=== PATIENT | male | born 1950 | race American Indian/Alaskan Native ===

== ENCOUNTER 2016-12-15 10:44 | Inpatient (IN) | payer MEDICARE ==
[2016-12-15] MEDS ORDERED: D50W (25GM) Syringe IV ONE ×2 (10:48→23:33)
[2016-12-15 11:27] LABS: Basophils % (Auto) 0.4 % (0.0-1.8); Eosinophils % (Auto) 0.2 % (0.0-4.3); Mean Corpuscular HGB Conc 32 % (32-34); Mean Corpuscular Volume 76 fl (84-94); Platelet Count 151 K/mm3 (140-440); Red Blood Count 2.88 M/mm3 (3.65-5.03); Red Cell Distribution Width 17.7 % (13.2-15.2); White Blood Count 3.5 K/mm3 (4.5-11.0)
[2016-12-15 11:30] LABS: Mean Corpuscular Hemoglobin 24 pg (28-32)
[2016-12-15 11:41] LABS: Bacteria,Urine 1+ /HPF (Negative); Bilirubin,Urine NEG (Negative); Blood,Urine LG (Negative); Ketones,Urine NEG (Negative); Leukocyte Esterase,Urine NEG (Negative); Mucus,Urine FEW /HPF; Nitrite,Urine NEG (Negative); Protein,Urine <15 mg/dL mg/dL (Negative); Urobilinogen,Urine < 2.0 mg/dL (<2.0)
[2016-12-15 11:45] LABS: Anion Gap 16 mmol/L; Blood Urea Nitrogen 33 mg/dL (9-20); Calcium 7.7 mg/dL (8.4-10.2); Carbon Dioxide 27 mmol/L (22-30); Chloride 93.6 mmol/L (98-107); Glucose 386 mg/dL (75-100); Potassium 3.5 mmol/L (3.6-5.0); Sodium 133 mmol/L (137-145)
--- NOTE | 2016-12-15 11:54 | Emergency Department Report ---
- General Chief complaint: Altered Mental Status Stated complaint: UNRESPONSIVE Time Seen by Provider: 12/15/16 11:40 Source: patient Mode of arrival: Stretcher Limitations: No Limitations - History of Present Illness MD Complaint: generalized weakness -: Gradual Location: generalized Severity: moderate Severity scale (0 -10): 3 Quality: aching Consistency: constant Improves with: none Worsens with: none Associated Symptoms: denies: chest pain, confusion, dark stools, diaphoresis, dysuria, easy bruising, fever/chills, headaches, loss of appetite, nausea/ vomiting, rash, shortness of breath - Related Data Allergies Allergy/AdvReac Type Severity Reaction Status Date / Time No Known Allergies Allergy Verified 12/15/16 11:39 ED Review of Systems ROS: Stated complaint: UNRESPONSIVE Other details as noted in HPI Comment: All other systems reviewed and negative Constitutional: denies: chills, fever Eyes: denies: eye pain, eye discharge, vision change ENT: denies: ear pain, throat pain Respiratory: denies: cough, shortness of breath, wheezing Cardiovascular: denies: chest pain, palpitations Endocrine: no symptoms reported Gastrointestinal: denies: abdominal pain, nausea, diarrhea Genitourinary: denies: urgency, dysuria Musculoskeletal: denies: back pain, joint swelling, arthralgia Skin: denies: rash, lesions Neurological: denies: headache, weakness, paresthesias Psychiatric: denies: anxiety, depression Hematological/Lymphatic: denies: easy bleeding, easy bruising ED Past Medical Hx - Past Medical History Hx of Cancer: Yes (prostate) - Social History Smoking Status: Never Smoker Substance Use Type: None ED Physical Exam - General Limitations: No Limitations General appearance: alert, in no apparent distress - Head Head exam: Present: atraumatic, normocephalic - Eye Eye exam: Present: normal appearance - ENT ENT exam: Present: normal orophraynx, mucous membranes moist - Neck Neck exam: Present: normal inspection - Respiratory Respiratory exam: Present: normal lung sounds bilaterally. Absent: respiratory distress - Cardiovascular Cardiovascular Exam: Present: regular rate, normal rhythm. Absent: systolic murmur, diastolic murmur, rubs, gallop - GI/Abdominal GI/Abdominal exam: Present: soft, normal bowel sounds - Rectal Rectal exam: Present: deferred - Extremities Exam Extremities exam: Present: normal inspection - Back Exam Back exam: Present: normal inspection - Neurological Exam Neurological exam: Present: alert, oriented X3 - Psychiatric Psychiatric exam: Present: normal affect, normal mood - Skin Skin exam: Present: warm, dry, intact, normal color. Absent: rash ED Course Vital Signs 12/15/16 10:55 Temperature 97.5 F L Pulse Rate 91 H Respiratory 16 Rate Blood Pressure 108/70 [Right] O2 Sat by Pulse 100 Oximetry ED Medical Decision Making - Lab Data Result diagrams: 12/15/16 11:00 12/15/16 11:00 - EKG Data -: EKG Interpreted by Me EKG shows normal: sinus rhythm - EKG Data Interpretation: no acute changes - Radiology Data Radiology results: report reviewed, image reviewed - Medical Decision Making responding full senteces with me ayaka , has no complaints and wihses to go go home , waiting ofr head ct and probably dc. Critical care attestation.: If time is entered above; I have spent that time in minutes in the direct care of this critically ill patient, excluding procedure time. ED Disposition Clinical Impression: Weakness Disposition: DC-01 TO HOME OR SELFCARE Is pt being admited?: No Does the pt Need Aspirin: No Condition: Good Instructions: Weakness (ED) Time of Disposition: 12:51
[2016-12-15] MEDS ORDERED: ROCEPHIN/NS 1 GM/50 ML 1 GM/50 ML BAG IV ONE (14:13)
--- NOTE | 2016-12-15 14:14 | Emergency Department Report ---
ED General Adult HPI - General Chief complaint: Altered Mental Status Stated complaint: UNRESPONSIVE Time Seen by Provider: 12/15/16 11:40 Source: patient, RN notes reviewed Mode of arrival: Stretcher Limitations: Physical Limitation - History of Present Illness Initial comments: This is a 66-year-old male. He is previously unknown to me. He reports his primary care doctor is Dr. Ulloa. Patient reports a past medical history of prostate cancer. The patient was brought to the hospital for unresponsiveness and hypoglycemia. The patient reports "passing out." She complains of generalized weakness. He denies headache, neck pain, chest pain, abdominal pain, cough, mucus production, and he denies irritative and obstructive urinary symptoms. The patient is unable to describe exacerbating or relieving factors. -: Gradual Severity scale (0 -10): 3 Consistency: constant Improves with: none Worsens with: none Associated Symptoms: confusion, syncope, weakness - Related Data Allergies Allergy/AdvReac Type Severity Reaction Status Date / Time No Known Allergies Allergy Verified 12/15/16 11:39 ED Review of Systems ROS: Stated complaint: UNRESPONSIVE Other details as noted in HPI Comment: Unobtainable due to pts medical conditions Constitutional: malaise, weakness Eyes: denies: eye discharge Respiratory: denies: cough Cardiovascular: syncope Endocrine: no symptoms reported Gastrointestinal: denies: hematemesis, melena, hematochezia Genitourinary: as per HPI Musculoskeletal: denies: back pain, joint swelling, arthralgia Neurological: weakness, confusion. denies: headache, paresthesias Psychiatric: denies: anxiety, depression Hematological/Lymphatic: denies: easy bleeding, easy bruising ED Past Medical Hx - Past Medical History Hx of Cancer: Yes (prostate) - Social History Smoking Status: Never Smoker Substance Use Type: None ED Physical Exam - General Limitations: No Limitations General appearance: in no apparent distress - Head Head exam: Present: atraumatic, normocephalic - Eye Eye exam: Present: normal appearance - ENT ENT exam: Present: mucous membranes dry - Neck Neck exam: Present: normal inspection, full ROM. Absent: tenderness, meningismus - Respiratory Respiratory exam: Present: normal lung sounds bilaterally. Absent: respiratory distress, wheezes, rales, rhonchi, stridor, chest wall tenderness - Cardiovascular Cardiovascular Exam: Present: regular rate, normal rhythm. Absent: systolic murmur, diastolic murmur, rubs, gallop - GI/Abdominal GI/Abdominal exam: Present: soft, normal bowel sounds. Absent: distended, tenderness, guarding, rebound, rigid, pulsatile mass - Rectal Rectal exam: Present: normal inspection, normal rectal tone, heme (+) stool - Extremities Exam Extremities exam: Present: normal inspection, full ROM, normal capillary refill. Absent: pedal edema, joint swelling, calf tenderness - Back Exam Back exam: Present: normal inspection, full ROM. Absent: tenderness, CVA tenderness (R), CVA tenderness (L), muscle spasm, paraspinal tenderness, vertebral tenderness - Neurological Exam Neurological exam: Present: alert, oriented X3, other (Extraocular movements intact. Tongue midline. No facial droop. Facial sensation intact to light touch in the V1, V2, V3 distribution bilaterally. 5 and 5 strength in 4 extremities.. Sensation is intact to light touch in 4 extremities.). Absent: motor sensory deficit - Psychiatric Psychiatric exam: Present: normal affect, normal mood - Skin Skin exam: Present: warm, dry, intact, normal color. Absent: rash ED Course Vital Signs 12/15/16 12/15/16 10:55 14:00 Temperature 97.5 F L 93 F L Pulse Rate 91 H 89 Respiratory 16 13 Rate Blood Pressure 108/70 137/77 [Right] O2 Sat by Pulse 100 100 Oximetry ED Medical Decision Making - Lab Data Result diagrams: 12/15/16 11:00 12/15/16 11:00 Vital Signs 12/15/16 12/15/16 10:55 14:00 Temperature 97.5 F L 93 F L Pulse Rate 91 H 89 Respiratory 16 13 Rate Blood Pressure 108/70 137/77 [Right] O2 Sat by Pulse 100 100 Oximetry Lab Results 12/15/16 12/15/16 12/15/16 Range/Units 11:00 11:00 11:08 WBC 3.5 L (4.5-11.0) K/mm3 RBC 2.88 L (3.65-5.03) M/mm3 Hgb 7.0 L (11.8-15.2) gm/dl Hct 22.0 L (35.5-45.6) % MCV 76 L (84-94) fl MCH 24 L (28-32) pg MCHC 32 (32-34) % RDW 17.7 H (13.2-15.2) % Plt Count 151 (140-440) K/mm3 Lymph % (Auto) 32.7 (13.4-35.0) % [place] % (Auto) 6.9 (0.0-7.3) % Eos % (Auto) 0.2 (0.0-4.3) % Baso % (Auto) 0.4 (0.0-1.8) % Lymph # 1.1 L (1.2-5.4) K/mm3 [place] # 0.2 (0.0-0.8) K/mm3 Eos # 0.0 (0.0-0.4) K/mm3 Baso # 0.0 (0.0-0.1) K/mm3 Seg Neutrophils % 59.8 (40.0-70.0) % Seg Neutrophils # 2.1 (1.8-7.7) K/mm3 Sodium 133 L (137-145) mmol/L Potassium 3.5 L (3.6-5.0) mmol/L Chloride 93.6 L (98-107) mmol/L Carbon Dioxide 27 (22-30) mmol/L Anion Gap 16 mmol/L BUN 33 H (9-20) mg/dL Creatinine 0.5 L (0.8-1.5) mg/dL Estimated GFR > 60 ml/min BUN/Creatinine Ratio 66.00 % Glucose 386 H (75-100) mg/dL POC Glucose (70-105) Calcium 7.7 L (8.4-10.2) mg/dL Urine Color Yellow (Yellow) Urine Turbidity Clear (Clear) Urine pH 6.0 (5.0-7.0) Ur Specific [place] 1.010 (1.003-1.030) Urine Protein <15 mg/dl (Negative) mg/dL Urine Glucose (UA) >=500 (Negative) mg/dL Urine Ketones Neg (Negative) mg/dL Urine Blood Lg (Negative) Urine Nitrite Neg (Negative) Urine Bilirubin Neg (Negative) Urine Urobilinogen < 2.0 (<2.0) mg/dL Ur Leukocyte Esterase Neg (Negative) Urine WBC (Auto) 3.0 (0.0-6.0) /HPF Urine RBC (Auto) 50.0 (0.0-6.0) /HPF U Epithel Cells (Auto) < 1.0 (0-13.0) /HPF Urine Bacteria (Auto) 1+ (Negative) /HPF Urine Mucus Few /HPF 12/15/16 Range/Units 11:55 WBC (4.5-11.0) K/mm3 RBC (3.65-5.03) M/mm3 Hgb (11.8-15.2) gm/dl Hct (35.5-45.6) % MCV (84-94) fl MCH (28-32) pg MCHC (32-34) % RDW (13.2-15.2) % Plt Count (140-440) K/mm3 Lymph % (Auto) (13.4-35.0) % [place] % (Auto) (0.0-7.3) % Eos % (Auto) (0.0-4.3) % Baso % (Auto) (0.0-1.8) % Lymph # (1.2-5.4) K/mm3 [place] # (0.0-0.8) K/mm3 Eos # (0.0-0.4) K/mm3 Baso # (0.0-0.1) K/mm3 Seg Neutrophils % (40.0-70.0) % Seg Neutrophils # (1.8-7.7) K/mm3 Sodium (137-145) mmol/L Potassium (3.6-5.0) mmol/L Chloride (98-107) mmol/L Carbon Dioxide (22-30) mmol/L Anion Gap mmol/L BUN (9-20) mg/dL Creatinine (0.8-1.5) mg/dL Estimated GFR ml/min BUN/Creatinine Ratio % Glucose (75-100) mg/dL POC Glucose 108 H (70-105) Calcium (8.4-10.2) mg/dL Urine Color (Yellow) Urine Turbidity (Clear) Urine pH (5.0-7.0) Ur Specific [place] (1.003-1.030) Urine Protein (Negative) mg/dL Urine Glucose (UA) (Negative) mg/dL Urine Ketones (Negative) mg/dL Urine Blood (Negative) Urine Nitrite (Negative) Urine Bilirubin (Negative) Urine Urobilinogen (<2.0) mg/dL Ur Leukocyte Esterase (Negative) Urine WBC (Auto) (0.0-6.0) /HPF Urine RBC (Auto) (0.0-6.0) /HPF U Epithel Cells (Auto) (0-13.0) /HPF Urine Bacteria (Auto) (Negative) /HPF Urine Mucus /HPF - EKG Data -: EKG Interpreted by Me - EKG Data When compared to previous EKG there are: previous EKG unavailable 12/15/16 14:54 Sinus, 85 bpm, low voltage, T-wave inversions in the anteroseptal leads, abnormal EKG, QTC prolonged, not morphologically consistent with STEMI - Radiology Data Radiology results: report reviewed, image reviewed interpreted by me: X-ray the chest is hyperinflated, demonstrates no acute infiltrate, bony demineralization suggested, suggestive of patient's history of metastatic disease. Noncontrast CT scan of the brain is negative for acute findings, chronic diseases noted - Medical Decision Making Differential diagnosis: Lower GI bleed, bacteremia, pneumonia, urinary tract infection, thyroid insufficiency, environmental hypothermia Assessment and plan: 66-year-old male with a presenting complaint of generalized weakness, hypoglycemia, found to be hypothermic with a rectal temperature of 93 degrees, and anemia. Currently, he is alert to name, follows commands, though some month and location. He has brown stool that is guaiac positive. The patient will be started on packed red blood cell transfusion, he will be started on active passive rewarming, blood cultures and urine cultures will be drawn, he does not have neck pain or neck stiffness, therefore think meningitis is unlikely. Case is discussed with gastroenterology, Dr. Robles, and his group will follow as a consult. Case is presented to the Hospital physician, Dr. Hood, and he graciously accepts the patient to his service. Critical Care Time: Yes Critical care time in (mins) excluding proc time.: 35 Critical care attestation.: If time is entered above; I have spent that time in minutes in the direct care of this critically ill patient, excluding procedure time. Critical Care Time: Critical care time includes multiple bedside evaluations, interpretation of laboratory studies, radiology studies, time spent managing critically ill patient with hypothermia, hypoglycemia, anemia and lower GI bleed, requiring packed red blood cell transfusion, gastroenterology consultation, broad- spectrum antibiotics, consultation with hospital medicine. This does not include procedure time. ED Disposition Clinical Impression: Hypothermia, Lower GI bleed Disposition: OP ADMIT IP TO THIS HOSP Is pt being admited?: Yes Condition: Fair Instructions: Weakness (ED) Referrals: PRIMARY CARE, [Primary Care Provider] - 3-5 Days
[2016-12-15] MEDS ORDERED: NACL 0.9% 500 ML 500 ML IV ONE (14:42)
[2016-12-15] MEDS ORDERED: NACL 0.9% 1000 ML 1,000 ML IV ONE (14:42)
--- NOTE | 2016-12-15 14:43 | History and Physical Report ---
History of Present Illness Chief complaint: Doc "i iust feel weak, and i passed out" History of present illness: 66 YO Male with CaP, Severe Malnutrition presents to ED for evaluation. Pt states that he has been feeling weak and tired for the past 3 weeks with worsening symptoms over the past 2 days. Pt states that he passed out again today. Pt does not recall events prior to event, but merely recalls regaining consciousness on the floor. Pt denies trauma, fever, chills, CP, Palpitations, NVD, seizures, vertigo, loss of bowel/bladder continence, productive cough,leg swelling, calf pain, prolonged travel/immobility, hemoptysis, individual/family history of DVT/PE, or recent ill contacts. Pt seen and evaluated in ED and found to be hemoccult positive, and anemic with hgb of 7.0. GI consulted in ED. Past History Past Medical History: cancer, other (malnurition) Past Surgical History: No surgical history, Other (reviewed) Social history: single, Lives alone. denies: smoking, alcohol abuse, prescription drug abuse, IV drug use Family history: hypertension Medications and Allergies Allergies Allergy/AdvReac Type Severity Reaction Status Date / Time No Known Allergies Allergy Verified 12/15/16 11:39 Home Medications Medication Instructions Recorded Confirmed Last Taken Type No Known Home Medications [No 12/15/16 12/15/16 Unknown History Reported Home Medications] Active Meds: Active Medications Dextrose (D10w) 1,000 mls @ 75 mls/hr IV DIRECT MCKINLEY Review of Systems All systems: negative Constitutional: weight loss, no weight gain, no fever, no chills Ears, nose, mouth and throat: no ear pain, no ear discharge Cardiovascular: no chest pain, no orthopnea Respiratory: no cough Gastrointestinal: no abdominal pain Genitourinary Male: no hematuria, no flank pain Rectal: no pain Musculoskeletal: other (back pain) Integumentary: no rash, no pruritis, no redness Neurological: no head injury, no paralysis, no weakness Psychiatric: no anxiety Endocrine: no heat intolerance, no polyphagia, no excessive thirst Hematologic/Lymphatic: no easy bruising, no easy bleeding Allergic/Immunologic: no urticaria, no allergic rhinitis Exam - Constitutional Vitals: Temp Pulse Resp BP Pulse Ox 93 F L 89 13 137/77 100 12/15/16 14:00 12/15/16 14:00 12/15/16 14:00 12/15/16 14:00 12/15/16 14:00 General appearance: Present: mild distress, cachectic - EENT Eyes: Present: PERRL ENT: hearing intact, clear oral mucosa - Neck Neck: Present: supple, normal ROM - Respiratory Respiratory effort: normal Respiratory: bilateral: diminished - Cardiovascular Heart Sounds: Present: S1 & S2. Absent: rub, click - Extremities Extremities: pulses symmetrical, No edema Peripheral Pulses: within normal limits - Abdominal General gastrointestinal: Present: soft, non-tender, non-distended, normal bowel sounds Male genitourinary: Present: normal - Integumentary Integumentary: Present: clear, dry, clammy, decreased turgor - Musculoskeletal Musculoskeletal: generalized weakness - Psychiatric Psychiatric: appropriate mood/affect, intact judgment & insight - Neurologic Neurologic: CNII-XII intact, moves all extremities Results - Labs CBC & Chem 7: 12/15/16 11:00 12/15/16 11:00 Labs: Abnormal lab results 12/15/16 12/15/16 12/15/16 Range/Units 11:00 11:00 11:55 WBC 3.5 L (4.5-11.0) K/mm3 RBC 2.88 L (3.65-5.03) M/mm3 Hgb 7.0 L (11.8-15.2) gm/dl Hct 22.0 L (35.5-45.6) % MCV 76 L (84-94) fl MCH 24 L (28-32) pg RDW 17.7 H (13.2-15.2) % Lymph # 1.1 L (1.2-5.4) K/mm3 Sodium 133 L (137-145) mmol/L Potassium 3.5 L (3.6-5.0) mmol/L Chloride 93.6 L (98-107) mmol/L BUN 33 H (9-20) mg/dL Creatinine 0.5 L (0.8-1.5) mg/dL Glucose 386 H (75-100) mg/dL POC Glucose 108 H (70-105) Calcium 7.7 L (8.4-10.2) mg/dL Assessment and Plan - Patient Problems (1) Lower GI bleed Current Visit: Yes Status: Acute Plan to address problem: GI consulted in ED, PPI therapy, serial BMP, PRBC transfusion (2) Unconscious state Current Visit: Yes Status: Acute Plan to address problem: CT head, supportive care, IVF replacement, monitor uop q shift. (3) Prostate cancer Current Visit: Yes Status: Acute Plan to address problem: supportive care, pain control, outpatient f/U with oncology (4) Severe malnutrition Current Visit: Yes Status: Acute Plan to address problem: Encourage oral intake, increased protein intake (5) Blood loss anemia Current Visit: Yes Status: Acute Plan to address problem: PRBC transfusion, supportive care, repeat cbc (6) Hypothermia Current Visit: Yes Status: Acute Qualifiers: Encounter type: E Plan to address problem: warming blanket, supportive care. (7) DVT prophylaxis Current Visit: Yes Status: Acute
--- NOTE | 2016-12-15 14:50 | Cat Scan Report ---
CT HEAD WITHOUT CONTRAST: HISTORY: Altered mental status. TECHNIQUE: Sequential CT images without contrast. FINDINGS: Images obtained show bilateral prominence of the sulci and ventricles. There are no focal masses or evidence of mass effect. The winston white matter differentiation appears within normal limits. Regions of periventricular decreased attenuation are consistent with microangiopathic ischemic disease. Arachnoid cyst anterior to the right temporal lobe measures 3.2 x 2.0 cm. There is a chronic cortical infarct in the right parietal lobe measuring up to 3.5 x 1.5 cm. The posterior fossa structures including the fourth ventricle, cerebellum, and brainstem appear normal. There is complete opacification and expansion of the left maxillary sinus. Complete opacification of the sphenoid sinuses. Partial opacification of the ethmoid sinuses. IMPRESSION: Volume loss and chronic white matter changes. 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 Right temporal arachnoid cyst, likely an incidental finding. Advanced chronic sinus disease. Left maxillary sinus mucocele should be considered. No acute intracranial process is appreciated.
--- NOTE | 2016-12-15 15:07 | XRay Report ---
CHEST ONE VIEW INDICATION: Hypothermia, hypoglycemia, questionable pneumonia. COMPARISON: None similar. FINDINGS: Portable, single, frontal chest radiograph demonstrates normal cardiomediastinal silhouette. Clear lungs. Diffuse skeletal sclerotic metastases. Extrinsic EKG leads. CONCLUSION: No acute disease in the chest with diffuse bony metastatic disease noted. Thank you for the opportunity to participate in this patient's care.
[2016-12-15 15:36] LABS: INR 2.37 (0.87-1.13)
[2016-12-15 15:37] LABS: Partial Thromboplastin Time 34.9 Sec. (24.2-36.6)
[2016-12-15 15:39] LABS: Albumin 3.6 g/dL (3.9-5); Albumin/Globulin Ratio 1.2 %; Bilirubin,Direct 0.3 mg/dL (0-0.2); Bilirubin,Indirect 0.4 mg/dL; Bilirubin,Total 0.7 mg/dL (0.1-1.2); Total Protein 6.7 g/dL (6.3-8.2)
[2016-12-15] MEDS ORDERED: DULCOLAX PR PRN (15:58)
[2016-12-15] MEDS ORDERED: MILK OF MAGNESIA PO PRN (15:58)
[2016-12-15] MEDS ORDERED: TYLENOL PO PRN (15:58)
[2016-12-15] MEDS ORDERED: PROVENTIL IH PRN (15:58)
[2016-12-15] MEDS: D10W 1,000 ML IV SCH (16:11)
[2016-12-15] MEDS ORDERED: PERCOCET 5/325 PO PRN (16:30)
[2016-12-15] MEDS ORDERED: NACL 0.9% 500 ML 500 ML ONE (16:55)
[2016-12-15] MEDS: DILAUDID PO PRN (18:05)
[2016-12-15] MEDS: PROTONIX IV SCH (18:46)
[2016-12-16] MEDS: DILAUDID PO PRN ×4 (00:51→18:31)
[2016-12-16] MEDS: PROTONIX IV SCH ×2 (05:51→17:51)
[2016-12-16] MEDS: D10W 1,000 ML IV SCH (07:15)
--- NOTE | 2016-12-16 10:30 | Admit Criteria Form ---
Admission Criteria Documentation: GENERAL ADMISSION CRITERIA (Place 'X' for any and all applicable criteria): Admission is indicated for ANY ONE of the following: [ ]I. Hemodynamic instability as indicated by ANY ONE of the following(1)(2) (3)(4)(5): [ ]a) Vital sign abnormality not readily corrected by appropriate treatment within 12 to 24 hours indicated by ANY ONE of the following: [ ]i) Hypotension [ ]ii) Symptomatic Tachycardia unresponsive to treatment (eg , analgesia, fluids, sedation as indicated) [ ]iii) Orthostatic vital sign changes unresponsive to treatment (eg, fluids) [ ]b) Vital sign abnormality that is severe indicated by ANY ONE of the following: [ ]i) Inadequate perfusion indicated by ANY ONE of the following: [ ]1) Lactic acidosis (greater than 2 mmol/L) [ ]2) New abnormal capillary refill (greater than 3 seconds) [ ]3) Other metabolic acidosis (arterial pH less than 7.35) not otherwise explained [ ]4) Reduced urine output [ ]5) Altered mental status [ ]6) Myocardial Ischemia [ ]v) Mean arterial pressure[A] less than 60 mm Hg [ ]vi) Mean arterial pressure[A] less than 70 mm Hg after 30 minutes of appropriate treatment (eg, fluid resuscitation) [ ]vii) IV inotropic or vasopressor medication required to maintain adequate blood pressure or perfusion [ ]viii) Sustained heart rate greater than 120 beats per minute in adult or child 6 years or older[B]] [ ]II. Hypertension requiring inpatient treatment as indicated by ANY ONE of the following(6)(7)(8): [ ]a) SBP greater than 220 mm Hg or DBP greater than 120 mm Hg despite treatment [ ]b) SBP greater than 140 mm Hg or DBP greater than 100 mm Hg with evidence of acute end organ damage as indicated by ANY ONE of the following: [ ]i) Encephalopathy [ ]ii) Acute renal failure as indicated by new onset of ANY ONE of the following(9)(10)(11)(12)(13): [ ]1) A 3-fold rise in serum creatinine from baseline [ ]2) Serum creatinine greater than 4 mg/dL ( 354 micromoles/L) with acute rise greater than 0.5 mg/dL (44.2 micromoles/L) [ ]3) Reduction of more than 75% in estimated glomerular filtration rate from baseline [ ]4) Estimated glomerular filtration rate less than 35 mL/min/1.73m2 (0.59 mL/sec/1.73m2) in child up to 18 years of age [ ]5) Cessation of urine output indicated by ALL of the following: [ ]A. Adequate volume status [ ]B. Inadequate urine output as indicated by ANY ONE of the following: [ ]a. Urine output less than 0.3 mL/kg/hr for 24 hours [ ]b. Anuria (urine output less than 0.1 mL/kg/hr) for 12 hours [ ]iii) Aortic dissection [ ]iv) Myocardial ischemia [ ]v) Left ventricular heart failure [ ]vi) Retinal hemorrhage [ ]vii) Other significant finding [ ]c) Hypertension in child requiring inpatient treatment as indicated by ALL of the following(14)(15)(16): [ ]i) Outpatient treatment not effective, not available, or not appropriate [ ]ii) SBP or DBP greater than 95th percentile for age [ ]iii) Evidence of acute end organ damage as indicated by ANY ONE of the following: [ ]1) Altered mental status [ ]2) Acute renal failure as indicated by new onset of ANY ONE of the following(9)(10)(11)(12)(13): [ ]A. A 3-fold rise in serum creatinine from baseline [ ]B. Serum creatinine greater than 4 mg/dL (354 micromoles/L) with acute rise greater than 0.5 mg/dL (44.2 micromoles/L) [ ]C. Reduction of more than 75% in estimated glomerular filtration rate from baseline [ ]D. Estimated glomerular filtration rate less than 35 mL/min/1.73m2 (0.59 mL/sec/1.73m2)in child up to 18 years of age [ ]E. Cessation of urine output indicated by ALL of the following: [ ]a. Adequate volume status [ ]b. Inadequate urine output as indicated by ANY ONE of the following: [ ]1) Urine output less than 0.3 mL/kg/hr for 24 hours [ ]2) Anuria (urine output less than 0.1 mL/kg/hr) for 12 hours [ ]3) Severe headache [ ]4) Visual disturbance [ ]5) Retinal hemorrhage [ ]6) Other significant finding [ ]III. Acute cardiac or peripheral ischemia as indicated by ANY ONE of the following: [ ]a) Acute coronary syndrome(17)(18) [ ]b) Acute peripheral ischemia (eg, pulseless, cool, mottled, or cyanotic extremity)(19) [ ]IV. Cardiac arrhythmias or findings of immediate concern indicated by ANY ONE of the following(20)(21): [ ]a) Heart rhythms that are inherently dangerous or unstable indicated by ANY ONE of the following(22)(23)(24): [ ]i) Resuscitated ventricular fibrillation or cardiac arrest [ ]ii) Ventricular escape rhythm [ ]iii) Sustained ventricular tachycardia (30 seconds or more of ventricular rhythm at greater than 100 beats per minute) [ ]iv) Nonsustained ventricular tachycardia and ANY ONE of the following: [ ]1) Suspected cardiac ischemia as cause or consequence of ventricular tachycardia [ ]2) In setting of acute myocarditis [ ]b) Unstable cardiac conduction defects indicated by ANY ONE of the following(24)(25)(26): [ ]i) Type II second-degree atrioventricular block [ ]ii) Third-degree atrioventricular block [ ]iii) New-onset left bundle branch block with suspected myocardial ischemia [ ]c) Any heart rhythm and ANY ONE of the following(22)(23)(27)(28)( 29): [ ] i) Continuous long-term ECG monitoring needed (eg, initiation of drug requiring monitoring for more than 24 hours) [ ] ii) Patient has automatic implanted cardioverter defibrillator that is repeatedly firing, malfunctioning, or in need of immediate adjustment of settings beyond the scope of ambulatory or observation care. [ ]d) Heart rhythms of concern due to ANY ONE of the following: [ ]i) Hypotension [ ]ii) Respiratory distress [ ]iii) Association with other significant symptoms (eg, bradycardia with syncope or ongoing dizziness, supraventricular tachycardia with chest pain) (27)(28) (30) [ ] V. Severe heart failure as indicated by ANY ONE of the following ( 31)(32): [ ]a) Respiratory distress [ ]b) Hypotension [ ]c) Anasarca (refractory to outpatient therapy) [ ]d) Cardiac arrhythmias of immediate concern [ ]e) Myocardial ischemia [ ]. Respiratory abnormalities, including ANY ONE of the following(33)(34) (35)(36): [ ]a) Respiratory rate greater than 30 breaths per minute unresponsive to treatment [A] [ ]b) New saturation of arterial oxygen less than 90% [ ]c) New partial pressure of carbon dioxide greater than 44 mm Hg ( 5.9 kPa) [ ]d) Supplemental oxygen or respiratory treatments needed that are new or not performable at other levels of care [ ]e) New-onset cyanosis [ ]f) Inability to protect airway [ ]g) Chronic lung disease with severe deterioration (not responsive to emergency and observation care treatment as appropriate) as indicated by ANY ONE of the following(34)(36 ): [ ]i) SaO2 5% below baseline in patient with chronic hypoxemia [ ]ii) New requirement for supplemental oxygen to keep SaO2 at baseline or acceptable level [ ]iii) Required supplemental oxygen performable only in acute inpatient setting [ ]iv) Severe airflow or ventilation abnormalities [ ]v) Previously mobile patient unable to walk between rooms [ ]vi Inability to eat or sleep due to dyspnea [ ]vii) Rapid rate of exacerbation onset [ ]viii) Altered mental status ]VII. Severe airflow or ventilation abnormalities (not responsive to emergency and observation care treatment as appropriate) as indicated by ANY ONE of the following(33)(34)(35)(37): [ ]a) PCO2 greater than 42 mm Hg (5.6 kPa) and pH less than 7.35 (new ) [ ]b) Documented PCO2 increased more than 5 mm Hg (0.7 kPa) from disease baseline [ ]c) Airflow measurements [B] less than 60% of previous best or predicted (eg, peak expiratory flow rate less than 300 L/minute) despite intensive emergent treatment [C] [ ]d) Required respiratory treatments that are performable only in acute inpatient setting [ ]VIII. Impending or actual respiratory arrest ( Also use Respiratory Failure GRG for severe respiratory disease and long-term mechanical ventilation patients) [ ]IX. Neurologic abnormalities, including ANY ONE of the following: [ ]a) New findings that suggest ANY ONE of the following: [ ]i) [employer] infection(38) [ ]ii) Cerebral bleeding, ischemia, or vasospasm(39)(40) [ ]iii) Increased intracranial pressure, hydrocephalus, or cerebral edema(41)(42)(43) [ ]iv) Spinal cord injury(44) [ ]b) Uncontrolled seizures(45) [ ]c) New-onset coma (eg, [place] coma scale score less than 9) or unexplained abnormal mental status (eg, [place] coma scale score less than 14) [D](41)(46)(47) [ ]X. New-onset severe neurologic findings requiring inpatient care; examples include(42)(48)(49): [ ]a) Papilledema [ ]b) Cerebral edema [ ]c) Mass effect on CT scan [ ]XI. Suspected acute intra-abdominal process with peritoneal signs, abdominal mass, or similar findings (50)(51)(52) [ ]XII. Severe physiologic disorder remaining after emergency or observation level care (as appropriate) as indicated by ANY ONE of the following (53): [ ]a) Significant dehydration [ ]b) Diabetic ketoacidosis [ ]c) Hyperglycemic hyperosmolar state (eg, osmolality greater than 320 mOsm/kg (mmol/kg) [ ]d) Hypoglycemia [ ]e) Other (new) acid-base disorder with pH less than 7.35 or greater than 7.5(54) [ ]f) Thyroid storm (55) [ ]g) Myxedema coma (55) [ ]XIII. Abdominal abnormalities with ANY ONE of the following(56)(57): [ ]a) Absent bowel sounds with complete ileus [ ]b) Signs of intestinal obstruction or peritonitis [E] [ ]c) Nausea and vomiting that cannot be controlled with outpatient or observation care [ ]XIV. Acute renal failure as indicated by new onset of ANY ONE of the following(9)(10)(11)(12)(13): [ ]a) A 3-fold rise in serum creatinine from baseline [ ]b) Serum creatinine greater than 4 mg/dL (354 micromoles/L) with acute rise greater than 0.5 mg/dL (44.2 micromoles/L) [ ]c) Reduction of more than 75% in estimated glomerular filtration rate from baseline [ ]d) Estimated glomerular filtration rate less than 35 mL/min/ 1.73m2 (0.59 mL/sec/1.73m2) in child up to 18 years of age [ ]e) Cessation of urine output indicated by ALL of the following: [ ]i) Adequate volume status [ ]ii) Inadequate urine output as indicated by ANY ONE of the following: [ ]1) Urine output less than 0.3 mL/kg/hr for 24 hours [ ]2) Anuria (urine output less than 0.1 mL/kg/hr) for 12 hours [ ]XV. Significant uremic complications as indicated by ANY ONE of the following(58)(59)(60): [ ]a) Outpatient therapy is ineffective or not feasible for ANY ONE of the following: [ ]i) Severe heart failure [ ]ii) Severehypertension [ ]iii) Pleural effusion [ ]iv) Pericarditis or pericardial effusion [ ]b) Cardiac arrhythmias of immediate concern [ ]c) Intractable nausea or vomiting [ ]d) Recurrent seizures [ ]e) Encephalopathy [ ]f) Bleeding abnormalities (eg, platelet dysfunction) with active (eg, gastrointestinal) bleeding [ ]g) Dialysis indicated before long-term access or ambulatory arrangements can be made [ ]h) Significant metabolic or electrolyte abnormalities (eg, severe acidosis or hyperkalemia) [ ]XVI. High fever or other high-risk infection situation as indicated by ANY ONE of the following(61)(62)(63)(64): [ ]a) Outpatient and observation care antimicrobial treatment unavailable, not effective, or not appropriate [ ]b) Documented bacteremia [ ]c) Temperature greater than 40.5 degrees C (104.9 degrees F) ( oral) [ ]d) Temperature greater than 39.5 degrees C (103.1 degrees F) ( oral) or less than 36 degrees C (96.8 degrees F) (rectal) that does not respond to e treatment and observation care [X ] XVII. Temperature less than 95 degrees F (35 degrees C)(rectal)(65) [ ] XVIII. Severe nutritional abnormalities as indicated by ALL of the following (66)(67): [ ]a) Inability to tolerate or establish sufficient oral or other enteral nutrition in outpatient setting [ ]b) Parenteral nutrition regimen need that must be implemented on inpatient basis [ ] XIX. Severe electrolyte abnormalities indicated by ALL of the following(68) (69)(70): [ ]a) Electrolytes and associated findings are not as expected for patient baseline or acceptable treatment effects. [ ]b) Severe abnormalities indicated by ANY ONE of the following: [ ]i) Sodium less than 130 mEq/L (mmol/L) (new) [ ]ii)Sodium less than 135 mEq/L (mmol/L) with ANY ONE of the following: [ ]1) Uncorrectable (to near normal or chronic baseline) after trial of outpatient and emergency treatment [ ]2) Altered mental status [ ]3) Seizures [ ]4) Severe medical etiology requiring inpatient management (eg, heart failure, hypovolemia) [ ]iii) Sodium greater than 155 mEq/L (mmol/L) [ ]iv) Sodium greater than 150 mEq/L (mmol/L) with ANY ONE of the following: [ ]1) Uncorrectable (to near normal or chronic baseline) with outpatient and emergency treatment [ ]2) Altered mental status [ ]3) Seizures [ ]4) Severe medical etiology (eg, hypovolemia, diabetes insipidus) [ ]v) Potassium less than 2.5 mEq/L (mmol/L) despite outpatient and emergency treatment [ ]vi) Potassium less than 3 mEq/L (mmol/L) with ANY ONE of the following: [ ]1) Weakness [ ]2) Cardiac abnormality (eg, arrhythmia, conduction disturbance) [ ]3) Cardiac ischemia [ ]4) Ileus [ ]5) Ongoing medical cause requiring inpatient management (eg, acute renal wasting or SIADH) [ ]6) Other severe symptoms [ ]vii) Potassium greater than 6.5 mEq/L (mmol/L) [ ]viii) Potassium greater than 5 mEq/L (mmol/L) with ANY ONE of the following: [ ]1) Uncorrectable (to near normal or chronic baseline) with outpatient and emergency treatment [ ]2) Severe ECG findings [F] [ ]3) Acute worsening of renal failure (creatinine greater than 2.5 mg/dL (221 micromoles/L) or significant elevation for age and size) [ ]4) Severe weakness [ ]5) Severe medical etiology (eg, hemolysis, infection, drug overdose) [ ]ix) Calcium less than 7 mg/dL (1.75 mmol/L) despite outpatient and emergency treatment (72) [ ]x) Calcium less than 8 mg/dL (2 mmol/L) with significant symptoms or findings; examples include(72): [ ]1) Altered mental status [ ]2) Muscle spasms [ ]3) Seizures [ ]4) Breathing difficulty [ ]5) Cardiac abnormality (eg, arrhythmia or conduction disturbance) [ ]xi) Calcium greater than 14 mg/dL (3.5 mmol/L)(72) [ ]xii) Calcium greater than 12 mg/dL (3 mmol/L) with ANY ONE of the following(72): [ ]1) Uncorrectable (to near normal or chronic baseline) with outpatient and emergency treatment [ ]2) Significant dehydration or hypovolemia as indicated by ALL of the following(70)(73)(74): [ ]A. Not resolved with initial treatments [ ]B. Clinically significant dehydration as indicated by ANY ONE of the following: [ ]a. Vomiting refractory to outpatient treatment (ie, precluding oral rehydration) [ ]b. Inability to drink [ ]c. Hypernatremia or other electrolyte abnormality unable to be corrected with outpatient and emergency treatment [ ]d. Failure to remain hydrated with outpatient therapy [ ]e. Reduced urine output [ ]f. Hypotension [ ]g. Serious cause for dehydration requiring acute hospitalization (eg, bowel obstruction, increased intracranial pressure, infectious cause) [ ]h. Child with ANY ONE of the following(75): [ ]1) Severe abdominal tenderness [ ]2) Adequate care not available at home [ ]3) Severe dehydration ( greater than 9% loss of body weight) [ ]4) Significant symptoms or findings; examples include: [ ]A. Altered mental status [ ]B. Cardiac abnormality (eg, arrhythmia, conduction disturbance) [ ]C. Malignant etiology requiring inpatient treatment [ ]xiii) Phosphorus less than 1 mg/dL (0.32 mmol/L) [ ]xiv) Phosphorus less than 1.5 mg/dL (0.48 mmol/L) with ANY ONE of the following: [ ]1) Patient unresponsive to outpatient and emergency treatment [ ]2) Significant symptoms or findings; examples include: [ ]A. Weakness [ ]B. Altered mental status [ ]C. Breathing difficulty [ ]D. Seizures [ ]E. Rhabdomyolysis [ ]xv) Phosphorus greater than 10 mg/dL (3.2 mmol/L) [ ]xvi) Phosphorus greater than 4.5 mg/dL (1.45 mmol/L) (new) with ANY ONE of the following: [ ]1) Severe medical etiology (eg, crush injury, acute renal failure) [ ]2) Associated hypocalcemia with significant findings; examples include: [ ]A. Neurologic symptoms [ ]B. Altered mental status [ ]C. Muscle spasms [ ]D. Seizures [ ]E. Breathing difficulty [ ]F. Cardiac abnormality (eg, arrhythmia, conduction disturbance) [ ]xvii) Magnesium less than 1 mg/dL (0.41 mmol/L) [ ]xviii) Magnesium less than 1.5 mg/dL (0.62 mmol/L) with ANY ONE of the following: [ ]1) Patient unresponsive to outpatient and emergency treatment [ ]2) Associated hypocalcemia with significant findings; examples include: [ ]A. Altered mental status [ ]B. Muscle spasms [ ]C. Seizures [ ]D. Breathing difficulty [ ]E. Cardiac abnormality (eg, arrhythmia , conduction disturbance) [ ]3) Associated hypokalemia (potassium less than 3 mEq/L (mmol/L)) with risk of arrhythmia [ ]xix) Magnesium greater than 4 mEq/L (2 mmol/L) [ ]xx) Magnesium greater than 2.5 mEq/L (1.25 mmol/L) with significant symptoms or findings; examples include: [ ]1) Weakness [ ]2) Altered mental status [ ]3) Cardiac abnormality (eg, arrhythmia, conduction disturbance) [ ]4) Breathing difficulty [ ]5) Severe medical etiology (eg, renal failure, hypovolemia) [ ]xxi) Uric acid greater than 20 mg/dL (1190 micromoles/L)(76) [ ]xxii) Uric acid greater than 8 mg/dL (476 micromoles/L) with significant symptoms or findings of tumor lysis syndrome; examples include(76): [ ]1) Creatinine greater than 1.5 times upper limit of normal [ ]2) Cardiac abnormality (eg, arrhythmia, conduction disturbance) [ ]3) Seizure [ ]XX. Acute blood loss causing significant abnormality as indicated by ANY ONE of the following(77)(78): [ ]a) Hemoglobin less than 10 g/dL (100 g/L) (not baseline) [ ]b) Hematocrit less than 30% (0.30) (not baseline) [ ]c) Repeat hematocrit decreased more than 2% (0.02) [ ]d) Uncontrolled bleeding [ ]XXI. Severe anemia indicated by ANY ONE of the following(78)(79): [ ]a) Altered mental status [ ]b) Chest pain [ ]c) Exertional dyspnea [ ]d) Syncope [ ]e) Other findings suggesting inadequate perfusion [ ]f) Treatment with transfusion or volume replacement is ineffective at resolving ANY ONE of the following [G]: [ ]i) Tachycardia for age [ ]ii) Orthostatic vital sign changes as indicated by ANY ONE of the following(80): [ ]1) Fall in SBP of 20 mm Hg or more 1 to 3 minutes after patient sits or stands from recumbent position [ ]2) Fall in DBP of 10 mm Hg or more 1 to 3 minutes after patient sits or stands from recumbent position [ ]XXII. High-risk low platelet count as indicated by ANY ONE of the following( 81)(82): [ ]a) Severe or life-threatening bleeding (eg, intracranial, major gastrointestinal, or extensive mucosal bleeding), with any reduced platelet count [ ]b) Platelet count less than 20,000/mm3 (20 x109/L) with any active bleeding [ ]c) Platelet count less than 10,000/mm3 (10 x109/L) with minor purpura or petechiae [ ]d) Platelet count less than 5000/mm3 (5 x109/L) [ ]e) Low platelet count with hemolytic anemia [ ]XXIII. Disseminated intravascular coagulation(77)(83) [ ]XXIV. Severe adverse drug or systemic toxin reaction requiring inpatient treatment; examples include(84)(85): [ ]a) Serotonin syndrome(86) [ ]b) Neuroleptic malignant syndrome(86) [ ]c) Cholinergic syndrome with severe symptoms (eg, bronchorrhea, weakness, mental status changes, seizures) [ ]d) Sympathetic syndrome with severe symptoms (eg, seizures, mental status changes, cardiac dysrhythmias) [ ]e) Anticholinergic syndrome [ ]XXV. Severe pain requiring acute inpatient management as indicated by ALL of the following (87)(88)(89): [ ]a) Continuous or frequent (eg, every 2 to 4 hours) parenteral analgesics required [H] [ ]b) Rapid improvement expected from treatment or acute intervention (eg, surgery, anesthesia procedure) [ ]XXVI.Severe behavioral health issues judged unmanageable at a lower level of care (eg, residential) in a patient who is ANY ONE of the following(91) [ ]a) Acutely suicidal [ ]b) A danger to self (eg, self-mutilating or suicidal behavior) [ ]c) A danger to others (eg, assaultive or homicidal behavior) [ ]d) Incapacitated because of grave disability (eg, inability to provide for self at lower level of care) (92) [ ]XXVII. Inpatient monitoring needed; examples include(1)(3)(87)(93)(94)(95)(96 ): [ ]a) Vital signs, neurologic signs, or vascular checks more frequently than every 4 hours [ ]b) Cardiac or respiratory monitoring beyond the scope (eg, over 24 hours) of observation care [ ]c) Pulmonary artery catheter monitoring [ ]d) Suspected compartment syndrome(97) (98) [ ]e) Cerebral bleeding, hydrocephalus, or vasospasm monitoring [ ]f) Increased intracranial pressure or cerebral edema monitoring [ ]g) monitoring [ ]XXVIII. Treatment requiring inpatient care; examples include: [ ]a) IV fluid to replace significant ongoing losses (greater than 3 L/m2 per day)(53) [ ]b) High concentration oxygen (greater than 40%)(33)(99)(100) [ ]c) Frequent respiratory therapy (more frequently than every 4 hours) to maintain airflow rates greater than 60% of baseline(33)(99)(100) [ ]d) Epidural analgesia(87) [ ]e) IV anticoagulation, vasoactive, or antiarrhythmic medication(19 )(23) [ ]f) Acute thrombolytics (generally require 24 hours of observation )(101)(102) [ ]XXIX. Emergency procedures needed; examples include: [ ]a) Emergency inpatient surgery [ ]b) Temporary pacemaker placement(103) [ ]c) Chest tube placement with active evacuation (eg, suction, drainage)(104) [ ]d) Emergent cardioversion(105) [ ]e) Emergent cardiac or vascular procedures (eg, cardiac catheterization, angioplasty) (17)(18) [ ]f) Emergent dialysis access placement and institution(10)(106) [ ]g) Emergent pericardiocentesis(107) [ ]h) Emergent plasmapheresis or leukapheresis(83) [ ]i) Emergent tracheostomy The original [employer] content created by [employer] has been revised. The portions of the content which have been revised are identified through the use of italic text or in bold, and [employer] has neither reviewed nor approved the modified material. All other unmodified content is copyright [employer] Please see references footnoted in the original [employer] edition 2016 Admission Criteria Met: Yes
[2016-12-16] MEDS ORDERED: NACL 0.9% 500 ML 500 ML IV ONE ×2 (11:21→15:00)
--- NOTE | 2016-12-16 11:25 | Progress Note ---
Assessment and Plan Assessment and plan: 66 YO Male with Widely metastatic prostate cancer, Severe Malnutrition , he states that he only follows up with his PCP who is Dr. Ulloa on [facility]. He does not see a urologist, he does not see an oncologist. States that he is only taking pain medications at home. He is complaining of dysphagia , he has trouble swallowing and feels like food gets stuck in the middle of his throat. Because of this he had poor intake of food and fluids. He has been weak he is been losing weight. He reports multiple episodes of passing out. Has very little recollection of it. Denies use of blood thinners, denies bloody stools or melena. He denies etoh use, He states that he is not a hospice patient Anemia Likely multifactorial, most likely due to widely metastatic malignancy, malnutrition. Patient has been transfused, hemoglobin improved Dysphagia Suspect esophageal stricture, GI has been consulted for possible EGD, they requested CT abdomen and pelvis, we'll review this speech path consult Widely metastatic prostate cancer We'll discuss with his PCP awaiting a call back, to find out the extent of disease, what treatment he has received , and the goal of care with him. As the patient seems to have trouble relaying this. obtain urology and oncology consult in am Hypokalemia Replete IV Autonomic Imbalance -likely due to anemia and dehydration -has received blood and now improved -continue IVF Diabetes with hyperglycemia Low-dose sliding scale as patient is nothing by mouth Lactic acidosis Doesn't appear to be due to sepsis, infection workup is negative which includes chest x-ray and UA. Hepatitis/elevated liver enzymes likely due to metastatic cancer fup GI recs Coagulopathy INR is 2.3, patient is on anticoagulation. Suspect vitamin K deficiency FFP and vitamin K ordered, repeat coags Severe malnutrition Dietitian consults Hypothermia resolved with warming blanket DVT prophylaxis scds History Interval history: weakness is improved, still c/o of dysphagia Hospitalist Physical - Physical exam Narrative exam: General: Appears chronically ill, cachectic HEENT: MMM, EOMI, weak voice cardiac: S1-S2 heard lungs: clear to auscultation, abdomen: soft, nontender, nondistended bowel sounds positive extremities: no edema clubbing or cyanosis Skin: no rash or lesion Neuro: no focal deficit Psych: appropriate behavior and mood, cognition intact - Constitutional Vitals: Temp Pulse Resp BP Pulse Ox 98.3 F 82 18 123/78 100 12/16/16 10:00 12/16/16 10:00 12/16/16 10:00 12/16/16 10:00 12/16/16 10:00 General appearance: Present: mild distress, cachectic Results - Labs CBC & Chem 7: 12/18/16 08:33 12/18/16 08:33 Labs: Laboratory Last Values WBC 3.5 K/mm3 (4.5-11.0) L 12/15/16 11:00 RBC 2.88 M/mm3 (3.65-5.03) L 12/15/16 11:00 Hgb 7.0 gm/dl (11.8-15.2) L 12/15/16 11:00 Hct 22.0 % (35.5-45.6) L 12/15/16 11:00 MCV 76 fl (84-94) L 12/15/16 11:00 MCH 24 pg (28-32) L 12/15/16 11:00 MCHC 32 % (32-34) 12/15/16 11:00 RDW 17.7 % (13.2-15.2) H 12/15/16 11:00 Plt Count 151 K/mm3 (140-440) 12/15/16 11:00 Lymph % (Auto) 32.7 % (13.4-35.0) 12/15/16 11:00 [place]bert % (Auto) 6.9 % (0.0-7.3) 12/15/16 11:00 Eos % (Auto) 0.2 % (0.0-4.3) 12/15/16 11:00 Baso % (Auto) 0.4 % (0.0-1.8) 12/15/16 11:00 Lymph # 1.1 K/mm3 (1.2-5.4) L 12/15/16 11:00 Colbert # 0.2 K/mm3 (0.0-0.8) 12/15/16 11:00 Eos # 0.0 K/mm3 (0.0-0.4) 12/15/16 11:00 Baso # 0.0 K/mm3 (0.0-0.1) 12/15/16 11:00 Seg Neutrophils % 59.8 % (40.0-70.0) 12/15/16 11:00 Seg Neutrophils # 2.1 K/mm3 (1.8-7.7) 12/15/16 11:00 PT 26.0 Sec. (12.2-14.9) H 12/15/16 14:58 INR 2.37 (0.87-1.13) H 12/15/16 14:58 APTT 34.9 Sec. (24.2-36.6) 12/15/16 14:58 Sodium 133 mmol/L (137-145) L 12/15/16 11:00 Potassium 3.5 mmol/L (3.6-5.0) L 12/15/16 11:00 Chloride 93.6 mmol/L (98-107) L 12/15/16 11:00 Carbon Dioxide 27 mmol/L (22-30) 12/15/16 11:00 Anion Gap 16 mmol/L 12/15/16 11:00 BUN 33 mg/dL (9-20) H 12/15/16 11:00 Creatinine 0.5 mg/dL (0.8-1.5) L 12/15/16 11:00 Estimated GFR > 60 ml/min 12/15/16 11:00 BUN/Creatinine Ratio 66.00 % 12/15/16 11:00 Glucose 386 mg/dL (75-100) H 12/15/16 11:00 POC Glucose 76 (70-105) 12/16/16 07:44 Lactic Acid 2.60 mmol/L (0.7-2.0) H* 12/15/16 14:58 Calcium 7.7 mg/dL (8.4-10.2) L 12/15/16 11:00 Magnesium 2.00 mg/dL (1.7-2.3) 12/15/16 14:58 Total Bilirubin 0.70 mg/dL (0.1-1.2) 12/15/16 14:58 Direct Bilirubin 0.3 mg/dL (0-0.2) H 12/15/16 14:58 Indirect Bilirubin 0.4 mg/dL 12/15/16 14:58 AST 1690 units/L (5-40) H 12/15/16 14:58 ALT 732 units/L (7-56) H 12/15/16 14:58 Alkaline Phosphatase 3280 units/L (35-129) H 12/15/16 14:58 Total Protein 6.7 g/dL (6.3-8.2) 12/15/16 14:58 Albumin 3.6 g/dL (3.9-5) L 12/15/16 14:58 Albumin/Globulin Ratio 1.2 % 12/15/16 14:58 TSH 1.290 mlU/mL (0.270-4.200) 12/15/16 14:58 Urine Color Yellow (Yellow) 12/15/16 11:08 Urine Turbidity Clear (Clear) 12/15/16 11:08 Urine pH 6.0 (5.0-7.0) 12/15/16 11:08 Ur Specific [place] 1.010 (1.003-1.030) 12/15/16 11:08 Urine Protein <15 mg/dl mg/dL (Negative) 12/15/16 11:08 Urine Glucose (UA) >=500 mg/dL (Negative) 12/15/16 11:08 Urine Ketones Neg mg/dL (Negative) 12/15/16 11:08 Urine Blood Lg (Negative) 12/15/16 11:08 Urine Nitrite Neg (Negative) 12/15/16 11:08 Urine Bilirubin Neg (Negative) 12/15/16 11:08 Urine Urobilinogen < 2.0 mg/dL (<2.0) 12/15/16 11:08 Ur Leukocyte Esterase Neg (Negative) 12/15/16 11:08 Urine WBC (Auto) 3.0 /HPF (0.0-6.0) 12/15/16 11:08 Urine RBC (Auto) 50.0 /HPF (0.0-6.0) 12/15/16 11:08 U Epithel Cells (Auto) < 1.0 /HPF (0-13.0) 12/15/16 11:08 Urine Bacteria (Auto) 1+ /HPF (Negative) 12/15/16 11:08 Urine Mucus Few /HPF 12/15/16 11:08 Blood Type B POSITIVE 12/15/16 14:58 Antibody Screen Negative 12/15/16 14:58 Crossmatch See Detail 12/15/16 14:58 - Imaging and Cardiology Chest x-ray: image reviewed (no infiltrate, but multiple bony mets)
--- NOTE | 2016-12-16 11:51 | Gastroenterology Consultation ---
<DIANAGUSRUPERT Romero - Last Filed: 12/16/16 11:59> History of Present Illness - Reason for Consult Consult date: 12/16/16 GI bleed,elevated LFTs Requesting physician: ADELAIDA SHAH - History of Present Illness Patient is a 66 y/o male who presented to the ER with c/o generalized weakness x 3 weeks, feeling tired, and an episode of "passing out". CT of head was negative for an acute process. He was found to be anemic, with elevated LFTs, and severely malnourished. He reports a 18lb wt loss over the last month due to dysphagia with solid foods. Denies dysphagia with liquids or decrease in appetite. Speech eval pending. Admits to lower abdomen/pelvic pain. Denies N/V, fever, jaundice, pruritus, odynophagia, hematemesis, melena, diarrhea, constipation, or hematochezia. Denies use of tobacco products or alcohol consumption. No NSAID use. No hx of liver disease per pt. No previous EGD or colonoscopy. Medical history significant for prostate cancer. Chest x-ray showed metastatic disease. Past History Past Medical History: cancer (prostate), other (malnurition) Past Surgical History: No surgical history, Other (reviewed) Social history: single, Lives alone. denies: smoking, alcohol abuse, prescription drug abuse, IV drug use Family history: hypertension Medications and Allergies Allergies Allergy/AdvReac Type Severity Reaction Status Date / Time No Known Allergies Allergy Verified 12/15/16 11:39 Home Medications Medication Instructions Recorded Confirmed Last Taken Type Oxycodone HCl [oxyCODONE TAB] 30 mg PO Q4H PRN 12/16/16 12/16/16 12/12/16 12:50 History 30 mg Active Meds: Active Medications Albuterol (Proventil) 2.5 mg IH Q4HRT PRN PRN Reason: Shortness Of Breath Bisacodyl (Dulcolax) 10 mg [place] QDAY PRN PRN Reason: Constipation unrelieved by MOM Hydromorphone HCl (Dilaudid) 1 mg PO Q6H PRN PRN Reason: Pain , Severe (7-10) Last Admin: 12/16/16 07:17 Dose: 1 mg Dextrose (D10w) 1,000 mls @ 75 mls/hr IV DIRECT [facility]CK[facility]LEY Last Admin: 12/16/16 07:15 Dose: 75 mls/hr Sodium Chloride (Nacl 0.9% 500 Ml) 500 mls @ 0 mls/hr IV ONCE ONE PRN Reason: As Directed Stop: 12/16/16 11:22 Magnesium Hydroxide (Milk Of Magnesia) 30 ml PO Q4H PRN PRN Reason: Constipation Pantoprazole Sodium (Protonix) 40 mg IV Q12H [facility] Last Admin: 12/16/16 05:51 Dose: 40 mg Phytonadione (Vitamin K (Adult Only)) 10 mg SUB-Q ONCE ONE Stop: 12/16/16 11:22 Review of Systems - Review of Systems All systems: negative Constitutional: weight loss, weakness Gastrointestinal: abdominal pain (lower abdomen/pelvic), other (dysphagia), no nausea, no vomiting, no hematemesis, no coffee ground emesis, no BRBPR, no melena, no hematochezia Exam - Constitutional Vital Signs: Temp Pulse Resp BP Pulse Ox 98.3 F 82 18 123/78 100 12/16/16 10:00 12/16/16 10:00 12/16/16 10:00 12/16/16 10:00 12/16/16 10:00 General appearance: no acute distress, cachectic, temporal muscle wasting - EENT Eyes: PERRL, EOM intact ENT: hearing intact - Respiratory Respiratory: bilateral: diminished - Cardiovascular Heart Sounds: Present: S1 & S2, gallop Extremities: No edema - Gastrointestinal General gastrointestinal: Present: soft, non-tender, non-distended, normal bowel sounds, other (flat) - Integumentary Integumentary: Present: warm, dry - Neurologic Neurological: alert and oriented x3 - Psychiatric Psychiatric: appropriate mood/affect, cooperative - Labs CBC & Chem 7: 12/15/16 11:00 12/15/16 11:00 Lab Results: Laboratory Results - last 24 hr 12/15/16 12/15/16 12/15/16 22:24 22:26 23:25 POC Glucose < 40 L < 40 L < 40 L 12/16/16 12/16/16 12/16/16 00:36 06:02 07:44 POC Glucose 196 H 97 76 Assessment and Plan 1.GI bleed 2.anemia 3.dysphagia 4.elevated LFTs 5. severe malnutrition 6.prostate cancer -chest [id number] metastatic disease -CT of head- revealed no acute process -stool guaiac positive -afebrile -WBC-3.5, plt 151, INR 2.3 -AST-1690, ALT 732, T. [place] 0.7, Alk phos 3280 -HBG 7.0- 1 unit of PRBCs transfused -continue to monitor H&H and transfuse as needed -no active signs of bleeding, pt currently hemodynamically stable -etiology of anemia most likely due to metastatic prostate CA -etiology of elevated LFTs unclear, pt denies ETOH abuse or h/o liver disease -will order acute hepatitis panel and CT of abd/pelvis/chest -vit k challenge and FFP ordered- repeat labs in am -clear liquid diet today after CT -speech eval pending- depending on results will consider EGD -would consider oncology consult -will follow <FARRAH NICHOLSON - Last Filed: 12/16/16 14:02> Medications and Allergies Active Meds: Active Medications Albuterol (Proventil) 2.5 mg IH Q4HRT PRN PRN Reason: Shortness Of Breath Bisacodyl (Dulcolax) 10 mg [place] QDAY PRN PRN Reason: Constipation unrelieved by MOM Hydromorphone HCl (Dilaudid) 1 mg PO Q6H PRN PRN Reason: Pain , Severe (7-10) Last Admin: 12/16/16 13:02 Dose: 1 mg Dextrose (D10w) 1,000 mls @ 75 mls/hr IV DIRECT MCKINLEY Last Admin: 12/16/16 07:15 Dose: 75 mls/hr Magnesium Hydroxide (Milk Of Magnesia) 30 ml PO Q4H PRN PRN Reason: Constipation Pantoprazole Sodium (Protonix) 40 mg IV Q12H [facility] Last Admin: 12/16/16 05:51 Dose: 40 mg Exam - Constitutional Vital Signs: Temp Pulse Resp BP Pulse Ox 98.3 F 82 18 123/78 100 12/16/16 10:00 12/16/16 10:00 12/16/16 10:00 12/16/16 10:00 12/16/16 10:00 - Labs CBC & Chem 7: 12/16/16 12:37 12/16/16 12:37 Lab Results: Laboratory Results - last 24 hr 12/15/16 12/15/16 12/15/16 22:24 22:26 23:25 WBC RBC Hgb Hct MCV MCH MCHC RDW Plt Count Sodium Potassium Chloride Carbon Dioxide Anion Gap BUN Creatinine Estimated GFR BUN/Creatinine Ratio Glucose POC Glucose < 40 L < 40 L < 40 L Calcium Total Bilirubin AST ALT Alkaline Phosphatase Total Protein Albumin Albumin/Globulin Ratio 12/16/16 12/16/16 12/16/16 00:36 06:02 07:44 WBC RBC Hgb Hct MCV MCH MCHC RDW Plt Count Sodium Potassium Chloride Carbon Dioxide Anion Gap BUN Creatinine Estimated GFR BUN/Creatinine Ratio Glucose POC Glucose 196 H 97 76 Calcium Total Bilirubin AST ALT Alkaline Phosphatase Total Protein Albumin Albumin/Globulin Ratio 12/16/16 12/16/16 12/16/16 11:49 12:36 12:37 WBC 6.1 RBC 3.67 Hgb 9.0 L Hct 28.2 L D MCV 77 L MCH 25 L MCHC 32 RDW 17.1 H Plt Count 110 L Sodium Potassium Chloride Carbon Dioxide Anion Gap BUN Creatinine Estimated GFR BUN/Creatinine Ratio Glucose POC Glucose 55 L 121 H Calcium Total Bilirubin AST ALT Alkaline Phosphatase Total Protein Albumin Albumin/Globulin Ratio 12/16/16 12:37 WBC RBC Hgb Hct MCV MCH MCHC RDW Plt Count Sodium 129 L Potassium 3.9 Chloride 91.6 L Carbon Dioxide 24 Anion Gap 17 BUN 21 H Creatinine 0.4 L Estimated GFR > 60 BUN/Creatinine Ratio 52.50 Glucose 228 H POC Glucose Calcium 8.2 L Total Bilirubin 0.60 AST 777 H ALT 418 H Alkaline Phosphatase 2792 H Total Protein 5.9 L Albumin 2.2 L Albumin/Globulin Ratio 0.6 Assessment and Plan Pt going to CT. Anemia - most likely to malignancy. Unclear if Heme+ stool is meaningful, given that it is brown. With dysphagia, upper GI source may be present. Will assess after CT. Weight loss - likely due to advanced neoplasm. Elevated LFTs - etiology unclear. Much improved with hydration. F/u CT. Elevated INR - likely due to malnutrition and low vit K. Will recheck after vit K.
[2016-12-16] MEDS ORDERED: D50W (25GM) Syringe IV ONE ×2 (12:19→16:37)
[2016-12-16] MEDS ORDERED: NACL ONE (12:19)
[2016-12-16 12:52] LABS: Hematocrit 28.2 % (35.5-45.6); Mean Corpuscular HGB Conc 32 % (32-34); Mean Corpuscular Volume 77 fl (84-94); Platelet Count 110 K/mm3 (140-440); Red Blood Count 3.67 M/mm3 (3.65-5.03); Red Cell Distribution Width 17.1 % (13.2-15.2); White Blood Count 6.1 K/mm3 (4.5-11.0)
[2016-12-16 12:56] LABS: Mean Corpuscular Hemoglobin 25 pg (28-32)
[2016-12-16] MEDS ORDERED: VITAMIN K (ADULT ONLY) SUB-Q ONE (13:00)
[2016-12-16 13:15] LABS: Alanine Aminotransferase 418 units/L (7-56); Albumin 2.2 g/dL (3.9-5); Albumin/Globulin Ratio 0.6 %; Anion Gap 17 mmol/L; Blood Urea Nitrogen 21 mg/dL (9-20); Calcium 8.2 mg/dL (8.4-10.2); Carbon Dioxide 24 mmol/L (22-30); Chloride 91.6 mmol/L (98-107); Glucose 228 mg/dL (75-100); Potassium 3.9 mmol/L (3.6-5.0); Sodium 129 mmol/L (137-145); Total Protein 5.9 g/dL (6.3-8.2)
[2016-12-16 13:32] LABS: Alkaline Phosphatase 2792 units/L (35-129)
--- NOTE | 2016-12-16 16:05 | Cat Scan Report ---
CT chest, abdomen, pelvis with contrast: Metastatic disease evaluation. Following intravenous contrast images are obtained through the chest to the ischium with coronal and sagittal 2-D reformatted images. No hilar or mediastinal adenopathy appreciated. Small calcified nodule in the superior left lobe. Patchy changes posteriorly at both lung bases. The lungs are otherwise clear The liver is normal in size and contour however it is diffusely inhomogeneous with discrete cystic-appearing areas of decreased attenuation as well as a permeative and diffuse appearing pattern of diminished attenuation predominantly in the right lobe. The abdominal organs otherwise appear generally unremarkable. There is a sharp circumscribed decreased focal density in each kidney consistent with a cyst. The kidneys and ureters are not otherwise remarkable. No other retroperitoneal findings. The prostate gland is enlarged indenting the bladder base centrally. The patient has a paucity of mesenteric fat limiting the evaluation. No obvious adenopathy however is identified. The unopacified bowel appears grossly normal. All visualized bones are diffusely and extensively involved with lytic and sclerotic lesions. Impressions: The findings are consistent with metastatic disease to the bones and liver. The enlarged prostate may well be the source.
--- NOTE | 2016-12-16 22:03 | Consultation ---
History of Present Illness - Reason for Consult Consult date: 12/16/16 prostate cancer Requesting physician: RIK EUGENE - History of Present Illness thank you for this consult. patient seen/examined, record reviewed, case d/w patient. Kindly asked to see this patient for the reasons of prostate cancer. As per his acount, he was dx with prostate [place] 9months ago [place] [facility] and was managed by DR Misael Ulloa. He could not tell me what mode of tx he has received so far. He just mentioned injection to his back/ perhaps some Lupron. He has lost a lot of Wt upon dx, and severer lower back pain , all due to metastatic dzas shown on CT scan here.There are both liver, and bone mets.I will rec monitor he here, and once d/arlene, he will follow up with DR Ulloa to continue his tx. He will need aggressive nutrition supplement., and pain control. Past History Past Medical History: cancer (prostate), other (malnurition) Past Surgical History: No surgical history, Other (reviewed) Social history: no significant social history, single, Lives alone. denies: smoking, alcohol abuse, prescription drug abuse, IV drug use Family history: cancer (his brother also have prostate cancer.), hypertension Medications and Allergies Allergies Allergy/AdvReac Type Severity Reaction Status Date / Time No Known Allergies Allergy Verified 12/15/16 11:39 Home Medications Medication Instructions Recorded Confirmed Last Taken Type Oxycodone HCl [oxyCODONE TAB] 30 mg PO Q4H PRN 12/16/16 12/16/16 12/12/16 12:50 History 30 mg Active Meds: Active Medications Albuterol (Proventil) 2.5 mg IH Q4HRT PRN PRN Reason: Shortness Of Breath Bisacodyl (Dulcolax) 10 mg [place] QDAY PRN PRN Reason: Constipation unrelieved by MOM Hydromorphone HCl (Dilaudid) 1 mg PO Q6H PRN PRN Reason: Pain , Severe (7-10) Last Admin: 12/16/16 18:31 Dose: 1 mg Dextrose (D10w) 1,000 mls @ 75 mls/hr IV DIRECT MCKINLEY Last Admin: 12/16/16 07:15 Dose: 75 mls/hr Magnesium Hydroxide (Milk Of Magnesia) 30 ml PO Q4H PRN PRN Reason: Constipation Oxycodone HCl (Roxicodone) 10 mg PO Q4H PRN PRN Reason: Pain, Moderate (4-6) Pantoprazole Sodium (Protonix) 40 mg IV Q12H [facility] Last Admin: 12/16/16 17:51 Dose: 40 mg Review of Systems Constitutional: weight loss, weakness, poor appetite, chronic pain Musculoskeletal: low back pain Integumentary: dryness Exam - Constitutional Vitals: Temp Pulse Resp BP Pulse Ox 97.7 F 80 16 128/75 100 12/16/16 17:24 12/16/16 17:24 12/16/16 17:24 12/16/16 17:24 12/16/16 10:00 General appearance: Present: mild distress, cachectic - EENT Eyes: Present: PERRL ENT: hearing intact, clear oral mucosa - Neck Neck: Present: supple, normal ROM - Respiratory Respiratory effort: normal Respiratory: bilateral: CTA - Cardiovascular Heart Sounds: Present: S1 & S2. Absent: rub, click - Extremities Extremities: pulses symmetrical, No edema Peripheral Pulses: within normal limits - Abdominal General gastrointestinal: Present: soft, non-tender, non-distended, normal bowel sounds Male genitourinary: Present: deferred - Rectal Rectal Exam: deferred - Integumentary Integumentary: Present: clear, warm, dry - Musculoskeletal Musculoskeletal: gait normal, strength equal bilaterally - Psychiatric Psychiatric: appropriate mood/affect, intact judgment & insight - Neurologic Neurologic: CNII-XII intact, moves all extremities Results - Labs CBC & Chem 7: 12/16/16 12:37 12/16/16 12:37 Labs: Abnormal lab results 12/15/16 12/15/16 12/15/16 Range/Units 22:24 22:26 23:25 Hgb (11.8-15.2) gm/dl Hct (35.5-45.6) % MCV (84-94) fl MCH (28-32) pg RDW (13.2-15.2) % Plt Count (140-440) K/mm3 Sodium (137-145) mmol/L Chloride (98-107) mmol/L BUN (9-20) mg/dL Creatinine (0.8-1.5) mg/dL Glucose (75-100) mg/dL POC Glucose < 40 L < 40 L < 40 L (70-105) Calcium (8.4-10.2) mg/dL AST (5-40) units/L ALT (7-56) units/L Alkaline Phosphatase (35-129) units/L Total Protein (6.3-8.2) g/dL Albumin (3.9-5) g/dL 12/16/16 12/16/16 12/16/16 Range/Units 00:36 11:49 12:36 Hgb (11.8-15.2) gm/dl Hct (35.5-45.6) % MCV (84-94) fl MCH (28-32) pg RDW (13.2-15.2) % Plt Count (140-440) K/mm3 Sodium (137-145) mmol/L Chloride (98-107) mmol/L BUN (9-20) mg/dL Creatinine (0.8-1.5) mg/dL Glucose (75-100) mg/dL POC Glucose 196 H 55 L 121 H (70-105) Calcium (8.4-10.2) mg/dL AST (5-40) units/L ALT (7-56) units/L Alkaline Phosphatase (35-129) units/L Total Protein (6.3-8.2) g/dL Albumin (3.9-5) g/dL 12/16/16 12/16/16 12/16/16 Range/Units 12:37 12:37 16:31 Hgb 9.0 L (11.8-15.2) gm/dl Hct 28.2 L D (35.5-45.6) % MCV 77 L (84-94) fl MCH 25 L (28-32) pg RDW 17.1 H (13.2-15.2) % Plt Count 110 L (140-440) K/mm3 Sodium 129 L (137-145) mmol/L Chloride 91.6 L (98-107) mmol/L BUN 21 H (9-20) mg/dL Creatinine 0.4 L (0.8-1.5) mg/dL Glucose 228 H (75-100) mg/dL POC Glucose 49 L (70-105) Calcium 8.2 L (8.4-10.2) mg/dL AST 777 H (5-40) units/L ALT 418 H (7-56) units/L Alkaline Phosphatase 2792 H (35-129) units/L Total Protein 5.9 L (6.3-8.2) g/dL Albumin 2.2 L (3.9-5) g/dL Assessment and Plan - Patient Problems (1) Blood loss anemia Current Visit: Yes Status: Acute Plan to address problem: already replaced, and GI on the case.He may be constipated from narcotics. (2) Lower GI bleed Current Visit: Yes Status: Acute Plan to address problem: as above. (3) Prostate cancer Current Visit: Yes Status: Acute Plan to address problem: see notes above. (4) Severe malnutrition Current Visit: Yes Status: Acute Plan to address problem: aggressive nutrition supplement.
[2016-12-16] MEDS: D50W (25GM) Syringe IV PRN (22:16)
[2016-12-17] MEDS: D10W 1,000 ML IV SCH ×2 (01:03→12:10)
[2016-12-17] MEDS: ROXICODONE PO PRN ×3 (01:07→23:00)
[2016-12-17 05:42] LABS: Anion Gap 16 mmol/L; Blood Urea Nitrogen 16 mg/dL (9-20); Calcium 8.6 mg/dL (8.4-10.2); Carbon Dioxide 29 mmol/L (22-30); Chloride 90.3 mmol/L (98-107); Glucose 43 mg/dL (75-100); Potassium 3.5 mmol/L (3.6-5.0); Sodium 132 mmol/L (137-145)
[2016-12-17 05:54] LABS: Hemoglobin 10.6 gm/dl (11.8-15.2); Mean Corpuscular HGB Conc 32 % (32-34); Mean Corpuscular Volume 76 fl (84-94); Platelet Count 124 K/mm3 (140-440); Red Blood Count 4.35 M/mm3 (3.65-5.03); Red Cell Distribution Width 17.3 % (13.2-15.2); White Blood Count 5.1 K/mm3 (4.5-11.0)
[2016-12-17 06:05] LABS: Mean Corpuscular Hemoglobin 24 pg (28-32)
[2016-12-17] MEDS: PROTONIX IV SCH ×2 (06:08→18:13)
[2016-12-17 07:07] LABS: Basophils % (Manual) 0 % (0.0-1.8); Blastocytes % (Manual) 0 %
[2016-12-17 07:09] LABS: Anisocytosis 1+; Diff Status Complete; Elliptocytes Few; Hypochromasia 1+; Platelet Estimate Consistent w Auto; Target Cells Rare
[2016-12-17] MEDS: D50W (25GM) Syringe IV PRN (07:32)
--- NOTE | 2016-12-17 12:22 | Progress Note ---
Assessment and Plan Assessment and plan: 66 YO Male with Widely metastatic prostate cancer, Severe Malnutrition , he states that he only follows up with his PCP who is Dr. Ulloa on [facility]. He does not see a urologist, he does not see an oncologist. States that he is only taking pain medications at home. He is complaining of dysphagia , he has trouble swallowing and feels like food gets stuck in the middle of his throat. Because of this he had poor intake of food and fluids. He has been weak he is been losing weight. He reports multiple episodes of passing out. Has very little recollection of it. Denies use of blood thinners, denies bloody stools or melena. He denies etoh use, He states that he is not a hospice patient Anemia Likely multifactorial, most likely due to widely metastatic malignancy, malnutrition. Patient has been transfused, hemoglobin improved Dysphagia Suspect esophageal stricture, GI has been consulted for possible EGD, they requested CT abdomen and pelvis, we'll review this speech path consult Widely metastatic prostate cancer We'll discuss with his PCP awaiting a call back, to find out the extent of disease, what treatment he has received , and the goal of care with him. As the patient seems to have trouble relaying this. obtain urology and oncology consult in am Hypokalemia Replete IV Autonomic Imbalance -likely due to anemia and dehydration -has received blood and now improved -continue IVF Hypoglycemia suspect adrenal crisis- start hydrocortisone continue D10 drip, check a1c Lactic acidosis Doesn't appear to be due to sepsis, infection workup is negative which includes chest x-ray and UA. Hepatitis/elevated liver enzymes likely due to metastatic cancer fup GI recs Coagulopathy INR is 2.3, patient is on anticoagulation. Suspect vitamin K deficiency FFP and vitamin K ordered, repeat coags Severe malnutrition Dietitian consults Hypothermia resolved with warming blanket DVT prophylaxis scds History Interval history: weakness is improved, still c/o of dysphagia Hospitalist Physical - Physical exam Narrative exam: General: Appears chronically ill, cachectic HEENT: MMM, EOMI, weak voice cardiac: S1-S2 heard lungs: clear to auscultation, abdomen: soft, nontender, nondistended bowel sounds positive extremities: no edema clubbing or cyanosis Skin: no rash or lesion Neuro: no focal deficit Psych: appropriate behavior and mood, cognition intact - Constitutional Vitals: Temp Pulse Resp BP Pulse Ox 97.9 F 84 18 126/87 99 12/17/16 10:00 12/17/16 10:00 12/17/16 10:00 12/17/16 10:00 12/17/16 10:00 General appearance: Present: mild distress, cachectic Results - Labs CBC & Chem 7: 12/18/16 08:33 12/18/16 08:33 Labs: Laboratory Last Values WBC 5.1 K/mm3 (4.5-11.0) 12/17/16 05:17 RBC 4.35 M/mm3 (3.65-5.03) 12/17/16 05:17 Hgb 10.6 gm/dl (11.8-15.2) L 12/17/16 05:17 Hct 33.0 % (35.5-45.6) L 12/17/16 05:17 MCV 76 fl (84-94) L 12/17/16 05:17 MCH 24 pg (28-32) L 12/17/16 05:17 MCHC 32 % (32-34) 12/17/16 05:17 RDW 17.3 % (13.2-15.2) H 12/17/16 05:17 Plt Count 124 K/mm3 (140-440) L 12/17/16 05:17 Lymph % (Auto) 32.7 % (13.4-35.0) 12/15/16 11:00 [place] % (Auto) 6.9 % (0.0-7.3) 12/15/16 11:00 Eos % (Auto) 0.2 % (0.0-4.3) 12/15/16 11:00 Baso % (Auto) 0.4 % (0.0-1.8) 12/15/16 11:00 Lymph # 1.1 K/mm3 (1.2-5.4) L 12/15/16 11:00 [place] # 0.2 K/mm3 (0.0-0.8) 12/15/16 11:00 Eos # 0.0 K/mm3 (0.0-0.4) 12/15/16 11:00 Baso # 0.0 K/mm3 (0.0-0.1) 12/15/16 11:00 Add Manual Diff Complete 12/17/16 05:17 Total Counted 100 12/17/16 05:17 Seg Neutrophils % 59.8 % (40.0-70.0) 12/15/16 11:00 Seg Neuts % (Manual) 77.0 % (40.0-70.0) H 12/17/16 05:17 Band Neutrophils % 6.0 % 12/17/16 05:17 Lymphocytes % (Manual) 14.0 % (13.4-35.0) 12/17/16 05:17 Reactive Lymphs % (Man) 0 % 12/17/16 05:17 Monocytes % (Manual) 2.0 % (0.0-7.3) 12/17/16 05:17 Eosinophils % (Manual) 1.0 % (0.0-4.3) 12/17/16 05:17 Basophils % (Manual) 0 % (0.0-1.8) 12/17/16 05:17 Metamyelocytes % 0 % 12/17/16 05:17 Myelocytes % 0 % 12/17/16 05:17 Promyelocytes % 0 % 12/17/16 05:17 Blast Cells % 0 % 12/17/16 05:17 Nucleated RBC % 3.0 % (0.0-0.9) H 12/17/16 05:17 Seg Neutrophils # 2.1 K/mm3 (1.8-7.7) 12/15/16 11:00 Seg Neutrophils # Man 3.9 K/mm3 (1.8-7.7) 12/17/16 05:17 Band Neutrophils # 0.3 K/mm3 12/17/16 05:17 Lymphocytes # (Manual) 0.7 K/mm3 (1.2-5.4) L 12/17/16 05:17 Abs React Lymphs (Man) 0.0 K/mm3 12/17/16 05:17 Monocytes # (Manual) 0.1 K/mm3 (0.0-0.8) 12/17/16 05:17 Eosinophils # (Manual) 0.1 K/mm3 (0.0-0.4) 12/17/16 05:17 Basophils # (Manual) 0.0 K/mm3 (0.0-0.1) 12/17/16 05:17 Metamyelocytes # 0.0 K/mm3 12/17/16 05:17 Myelocytes # 0.0 K/mm3 12/17/16 05:17 Promyelocytes # 0.0 K/mm3 12/17/16 05:17 Blast Cells # 0.0 K/mm3 12/17/16 05:17 WBC Morphology Not Reportable 12/17/16 05:17 Hypersegmented Neuts Not Reportable 12/17/16 05:17 Hyposegmented Neuts Not Reportable 12/17/16 05:17 Hypogranular Neuts Not Reportable 12/17/16 05:17 Smudge Cells Not Reportable 12/17/16 05:17 Toxic Granulation Not Reportable 12/17/16 05:17 Toxic Vacuolation Not Reportable 12/17/16 05:17 Dohle Bodies Not Reportable 12/17/16 05:17 Pelger-Huet Anomaly Not Reportable 12/17/16 05:17 Vannessa Rods Not Reportable 12/17/16 05:17 Platelet Estimate Consistent w auto 12/17/16 05:17 Clumped Platelets Not Reportable 12/17/16 05:17 Plt Clumps, EDTA Not Reportable 12/17/16 05:17 Large Platelets Not Reportable 12/17/16 05:17 Giant Platelets Not Reportable 12/17/16 05:17 Platelet Satelliting Not Reportable 12/17/16 05:17 Plt Morphology Comment Not Reportable 12/17/16 05:17 RBC Morphology Not Reportable 12/17/16 05:17 Dimorphic RBCs Not Reportable 12/17/16 05:17 Polychromasia Not Reportable 12/17/16 05:17 Hypochromasia 1+ 12/17/16 05:17 Poikilocytosis Not Reportable 12/17/16 05:17 Anisocytosis 1+ 12/17/16 05:17 Microcytosis Not Reportable 12/17/16 05:17 Macrocytosis Not Reportable 12/17/16 05:17 Spherocytes Not Reportable 12/17/16 05:17 Pappenheimer Bodies Not Reportable 12/17/16 05:17 Sickle Cells Not Reportable 12/17/16 05:17 Target Cells Rare 12/17/16 05:17 Tear Drop Cells Not Reportable 12/17/16 05:17 Ovalocytes Not Reportable 12/17/16 05:17 Helmet Cells Not Reportable 12/17/16 05:17 [place] Bodies Not Reportable 12/17/16 05:17 [place] Rings Not Reportable 12/17/16 05:17 [place] Cells Not Reportable 12/17/16 05:17 Bite Cells Not Reportable 12/17/16 05:17 Crenated Cell Not Reportable 12/17/16 05:17 Elliptocytes Few 12/17/16 05:17 Acanthocytes (Spur) Not Reportable 12/17/16 05:17 Rouleaux Not Reportable 12/17/16 05:17 Hemoglobin C Crystals Not Reportable 12/17/16 05:17 Schistocytes Not Reportable 12/17/16 05:17 Malaria parasites Not Reportable 12/17/16 05:17 Coy Bodies Not Reportable 12/17/16 05:17 Hem Pathologist Commnt No 12/17/16 05:17 PT 26.0 Sec. (12.2-14.9) H 12/15/16 14:58 INR 2.37 (0.87-1.13) H 12/15/16 14:58 APTT 34.9 Sec. (24.2-36.6) 12/15/16 14:58 Sodium 132 mmol/L (137-145) L 12/17/16 05:17 Potassium 3.5 mmol/L (3.6-5.0) L 12/17/16 05:17 Chloride 90.3 mmol/L (98-107) L 12/17/16 05:17 Carbon Dioxide 29 mmol/L (22-30) 12/17/16 05:17 Anion Gap 16 mmol/L 12/17/16 05:17 BUN 16 mg/dL (9-20) 12/17/16 05:17 Creatinine 0.4 mg/dL (0.8-1.5) L 12/17/16 05:17 Estimated GFR > 60 ml/min 12/17/16 05:17 BUN/Creatinine Ratio 40.00 % 12/17/16 05:17 Glucose 43 mg/dL (75-100) L 12/17/16 05:17 POC Glucose 86 (70-105) 12/17/16 07:52 Lactic Acid 2.60 mmol/L (0.7-2.0) H* 12/15/16 14:58 Calcium 8.6 mg/dL (8.4-10.2) 12/17/16 05:17 Magnesium 2.00 mg/dL (1.7-2.3) 12/15/16 14:58 Total Bilirubin 0.60 mg/dL (0.1-1.2) 12/16/16 12:37 Direct Bilirubin 0.3 mg/dL (0-0.2) H 12/15/16 14:58 Indirect Bilirubin 0.4 mg/dL 12/15/16 14:58 AST 777 units/L (5-40) H 12/16/16 12:37 ALT 418 units/L (7-56) H 12/16/16 12:37 Alkaline Phosphatase 2792 units/L (35-129) H 12/16/16 12:37 Total Protein 5.9 g/dL (6.3-8.2) L 12/16/16 12:37 Albumin 2.2 g/dL (3.9-5) L 12/16/16 12:37 Albumin/Globulin Ratio 0.6 % 12/16/16 12:37 TSH 1.290 mlU/mL (0.270-4.200) 12/15/16 14:58 Urine Color Yellow (Yellow) 12/15/16 11:08 Urine Turbidity Clear (Clear) 12/15/16 11:08 Urine pH 6.0 (5.0-7.0) 12/15/16 11:08 Ur Specific [place] 1.010 (1.003-1.030) 12/15/16 11:08 Urine Protein <15 mg/dl mg/dL (Negative) 12/15/16 11:08 Urine Glucose (UA) >=500 mg/dL (Negative) 12/15/16 11:08 Urine Ketones Neg mg/dL (Negative) 12/15/16 11:08 Urine Blood Lg (Negative) 12/15/16 11:08 Urine Nitrite Neg (Negative) 12/15/16 11:08 Urine Bilirubin Neg (Negative) 12/15/16 11:08 Urine Urobilinogen < 2.0 mg/dL (<2.0) 12/15/16 11:08 Ur Leukocyte Esterase Neg (Negative) 12/15/16 11:08 Urine WBC (Auto) 3.0 /HPF (0.0-6.0) 12/15/16 11:08 Urine RBC (Auto) 50.0 /HPF (0.0-6.0) 12/15/16 11:08 U Epithel Cells (Auto) < 1.0 /HPF (0-13.0) 12/15/16 11:08 Urine Bacteria (Auto) 1+ /HPF (Negative) 12/15/16 11:08 Urine Mucus Few /HPF 12/15/16 11:08 Hepatitis A IgM Ab Non-reactive (NonReactive) 12/17/16 05:17 Hep Bs Antigen Non-reactive (Negative) 12/17/16 05:17 Hep B Core IgM Ab Non-reactive (NonReactive) 12/17/16 05:17 Hepatitis C Antibody Reactive (NonReactive) A 12/17/16 05:17 Blood Type B POSITIVE 12/15/16 14:58 Antibody Screen Negative 12/15/16 14:58 Crossmatch See Detail 12/15/16 14:58
--- NOTE | 2016-12-17 12:36 | Fluoroscopy Report ---
MODIFIED BARIUM SWALLOW INDICATION: Dysphagia. COMPARISON: None similar. FINDINGS: Fluoroscopy with video provided by radiologist for speech therapist to assess the swallowing mechanism. Food items of various consistencies given. No aspiration noted. Somewhat sclerotic bones with cervical spondylosis. IMPRESSION: Successful modified barium swallow. Please refer to detailed report from speech pathologist. Thank you for the opportunity to participate in this patient's care.
[2016-12-17] MEDS: KCL 10MEQ/100ML 10 MEQ/100 ML BAG IV SCH ×4 (12:52→16:24)
[2016-12-17] MEDS: DILAUDID PO PRN (14:36)
[2016-12-17 15:05] LABS: INR 1.73 (0.87-1.13)
--- NOTE | 2016-12-17 17:53 | Progress Note ---
Assessment and Plan Pt going to CT. 1. Anemia - most likely due to malignancy. Unclear if Heme+ stool is meaningful, given that it is brown. 2. Dysphagia -upper GI source may be present. Mod barium swallow noted. Pt does not want EGD at present. 3. Weight loss - due to advanced neoplasm. 4. Elevated LFTs - Liver riddled with cancer by CT. Hospice discussion ongoing. Will sign off. Thanks. Subjective Date of service: 12/17/16 Interval history: Pt without new complaints. Objective - Constitutional Vitals: Vital Signs - 12hr 12/17/16 12/17/16 08:05 10:00 Temperature 97.9 F Pulse Rate 84 Respiratory 18 Rate Blood Pressure 126/87 O2 Sat by Pulse 100 99 Oximetry General appearance: Present: no acute distress, cachectic - EENT Eyes: PERRL, EOM intact ENT: hearing intact - Gastrointestinal General gastrointestinal: Present: soft, non-tender - Labs CBC & Chem 7: 12/17/16 05:17 12/17/16 05:17 Labs: Abnormal lab results 12/16/16 12/16/16 12/17/16 Range/Units 22:00 22:02 05:17 Hgb (11.8-15.2) gm/dl Hct (35.5-45.6) % MCV (84-94) fl MCH (28-32) pg RDW (13.2-15.2) % Plt Count (140-440) K/mm3 Seg Neuts % (Manual) (40.0-70.0) % Nucleated RBC % (0.0-0.9) % Lymphocytes # (Manual) (1.2-5.4) K/mm3 PT (12.2-14.9) Sec. INR (0.87-1.13) Sodium (137-145) mmol/L Potassium (3.6-5.0) mmol/L Chloride (98-107) mmol/L Creatinine (0.8-1.5) mg/dL Glucose (75-100) mg/dL POC Glucose < 40 L < 40 L (70-105) Hepatitis C Antibody Reactive A (NonReactive) 12/17/16 12/17/16 12/17/16 Range/Units 05:17 05:17 07:25 Hgb 10.6 L (11.8-15.2) gm/dl Hct 33.0 L (35.5-45.6) % MCV 76 L (84-94) fl MCH 24 L (28-32) pg RDW 17.3 H (13.2-15.2) % Plt Count 124 L (140-440) K/mm3 Seg Neuts % (Manual) 77.0 H (40.0-70.0) % Nucleated RBC % 3.0 H (0.0-0.9) % Lymphocytes # (Manual) 0.7 L (1.2-5.4) K/mm3 PT (12.2-14.9) Sec. INR (0.87-1.13) Sodium 132 L (137-145) mmol/L Potassium 3.5 L (3.6-5.0) mmol/L Chloride 90.3 L (98-107) mmol/L Creatinine 0.4 L (0.8-1.5) mg/dL Glucose 43 L (75-100) mg/dL POC Glucose < 40 L (70-105) Hepatitis C Antibody (NonReactive) 12/17/16 12/17/16 12/17/16 Range/Units 12:18 14:25 16:11 Hgb (11.8-15.2) gm/dl Hct (35.5-45.6) % MCV (84-94) fl MCH (28-32) pg RDW (13.2-15.2) % Plt Count (140-440) K/mm3 Seg Neuts % (Manual) (40.0-70.0) % Nucleated RBC % (0.0-0.9) % Lymphocytes # (Manual) (1.2-5.4) K/mm3 PT 21.2 H (12.2-14.9) Sec. INR 1.73 H (0.87-1.13) Sodium (137-145) mmol/L Potassium (3.6-5.0) mmol/L Chloride (98-107) mmol/L Creatinine (0.8-1.5) mg/dL Glucose (75-100) mg/dL POC Glucose 234 H 160 H (70-105) Hepatitis C Antibody (NonReactive)
--- NOTE | 2016-12-17 23:05 | Consultation ---
History of Present Illness - Reason for Consult Consult date: 12/17/16 - History of Present Illness patient seen/examined, labs/notes reviewed, case d/w patient. Hep C active.and probably complicating already bad situation. Past History Past Medical History: cancer (prostate), other (malnurition) Past Surgical History: No surgical history, Other (reviewed) Social history: no significant social history, single, Lives alone. denies: smoking, alcohol abuse, prescription drug abuse, IV drug use Family history: cancer (his brother also have prostate cancer.), hypertension Medications and Allergies Allergies Allergy/AdvReac Type Severity Reaction Status Date / Time No Known Allergies Allergy Verified 12/15/16 11:39 Home Medications Medication Instructions Recorded Confirmed Last Taken Type Oxycodone HCl [oxyCODONE TAB] 30 mg PO Q4H PRN 12/16/16 12/16/16 12/12/16 12:50 History 30 mg Active Meds: Active Medications Albuterol (Proventil) 2.5 mg IH Q4HRT PRN PRN Reason: Shortness Of Breath Bisacodyl (Dulcolax) 10 mg RI QDAY PRN PRN Reason: Constipation unrelieved by MOM Dextrose (D50w (25gm)) 25 ml IV PRN PRN PRN Reason: Hypoglycemia Last Admin: 12/17/16 07:32 Dose: 25 ml Hydrocortisone Sodium Succinate (Solu-Cortef) 100 mg IV Q8HR MCKINLEY Last Admin: 12/17/16 14:37 Dose: 100 mg Hydromorphone HCl (Dilaudid) 1 mg PO Q6H PRN PRN Reason: Pain , Severe (7-10) Last Admin: 12/17/16 14:36 Dose: 1 mg Dextrose (D10w) 1,000 mls @ 125 mls/hr IV DIRECT MCKINLEY Last Admin: 12/17/16 12:10 Dose: 125 mls/hr Magnesium Hydroxide (Milk Of Magnesia) 30 ml PO Q4H PRN PRN Reason: Constipation Oxycodone HCl (Roxicodone) 10 mg PO Q4H PRN PRN Reason: Pain, Moderate (4-6) Last Admin: 12/17/16 23:00 Dose: 10 mg Pantoprazole Sodium (Protonix) 40 mg IV Q12H MCKINLEY Last Admin: 12/17/16 18:13 Dose: 40 mg Review of Systems Constitutional: weight loss, fatigue, weakness, malaise, chronic pain Musculoskeletal: low back pain Exam - Constitutional Vitals: Temp Pulse Resp BP Pulse Ox 98.7 F 91 H 19 135/85 100 12/17/16 22:00 12/17/16 22:00 12/17/16 23:00 12/17/16 22:00 12/17/16 22:00 General appearance: Present: mild distress, cachectic - EENT Eyes: Present: PERRL ENT: hearing intact, clear oral mucosa - Neck Neck: Present: supple, normal ROM - Respiratory Respiratory effort: normal Respiratory: bilateral: CTA - Cardiovascular Heart Sounds: Present: S1 & S2. Absent: rub, click - Extremities Extremities: pulses symmetrical, No edema Peripheral Pulses: within normal limits - Abdominal General gastrointestinal: Present: soft, non-tender, non-distended, normal bowel sounds Male genitourinary: Present: deferred - Rectal Rectal Exam: deferred - Integumentary Integumentary: Present: clear, warm, dry - Psychiatric Psychiatric: appropriate mood/affect, intact judgment & insight - Neurologic Neurologic: CNII-XII intact, moves all extremities Results - Labs CBC & Chem 7: 12/17/16 05:17 12/17/16 05:17 Labs: Abnormal lab results 12/17/16 12/17/16 12/17/16 Range/Units 05:17 05:17 05:17 Hgb 10.6 L (11.8-15.2) gm/dl Hct 33.0 L (35.5-45.6) % MCV 76 L (84-94) fl MCH 24 L (28-32) pg RDW 17.3 H (13.2-15.2) % Plt Count 124 L (140-440) K/mm3 Seg Neuts % (Manual) 77.0 H (40.0-70.0) % Nucleated RBC % 3.0 H (0.0-0.9) % Lymphocytes # (Manual) 0.7 L (1.2-5.4) K/mm3 PT (12.2-14.9) Sec. INR (0.87-1.13) Sodium 132 L (137-145) mmol/L Potassium 3.5 L (3.6-5.0) mmol/L Chloride 90.3 L (98-107) mmol/L Creatinine 0.4 L (0.8-1.5) mg/dL Glucose 43 L (75-100) mg/dL POC Glucose (70-105) Hepatitis C Antibody Reactive A (NonReactive) 12/17/16 12/17/16 12/17/16 Range/Units 07:25 12:18 14:25 Hgb (11.8-15.2) gm/dl Hct (35.5-45.6) % MCV (84-94) fl MCH (28-32) pg RDW (13.2-15.2) % Plt Count (140-440) K/mm3 Seg Neuts % (Manual) (40.0-70.0) % Nucleated RBC % (0.0-0.9) % Lymphocytes # (Manual) (1.2-5.4) K/mm3 PT 21.2 H (12.2-14.9) Sec. INR 1.73 H (0.87-1.13) Sodium (137-145) mmol/L Potassium (3.6-5.0) mmol/L Chloride (98-107) mmol/L Creatinine (0.8-1.5) mg/dL Glucose (75-100) mg/dL POC Glucose < 40 L 234 H (70-105) Hepatitis C Antibody (NonReactive) 12/17/16 12/17/16 Range/Units 16:11 21:50 Hgb (11.8-15.2) gm/dl Hct (35.5-45.6) % MCV (84-94) fl MCH (28-32) pg RDW (13.2-15.2) % Plt Count (140-440) K/mm3 Seg Neuts % (Manual) (40.0-70.0) % Nucleated RBC % (0.0-0.9) % Lymphocytes # (Manual) (1.2-5.4) K/mm3 PT (12.2-14.9) Sec. INR (0.87-1.13) Sodium (137-145) mmol/L Potassium (3.6-5.0) mmol/L Chloride (98-107) mmol/L Creatinine (0.8-1.5) mg/dL Glucose (75-100) mg/dL POC Glucose 160 H 280 H (70-105) Hepatitis C Antibody (NonReactive) Assessment and Plan - Patient Problems (1) Blood loss anemia Current Visit: Yes Status: Acute Plan to address problem: already replaced, and GI on the case.He may be constipated from narcotics. (2) Lower GI bleed Current Visit: Yes Status: Acute Plan to address problem: as above. (3) Prostate cancer Current Visit: Yes Status: Acute Plan to address problem: see notes above. (4) Severe malnutrition Current Visit: Yes Status: Acute Plan to address problem: aggressive nutrition supplement. (5) Hep C w/o coma, chronic Current Visit: Yes Status: Acute Plan to address problem: supportive.
[2016-12-18] MEDS: D10W 1,000 ML IV SCH (03:00)
[2016-12-18] MEDS: PROTONIX IV SCH (06:25)
[2016-12-18 09:13] LABS: Hematocrit 29.5 % (35.5-45.6); Hemoglobin 9.5 gm/dl (11.8-15.2); Mean Corpuscular HGB Conc 32 % (32-34); Mean Corpuscular Volume 76 fl (84-94); Platelet Count 106 K/mm3 (140-440); Red Blood Count 3.86 M/mm3 (3.65-5.03); Red Cell Distribution Width 16.9 % (13.2-15.2)
[2016-12-18] MEDS: DILAUDID PO PRN (09:15)
[2016-12-18 09:16] LABS: Mean Corpuscular Hemoglobin 25 pg (28-32)
[2016-12-18 09:18] LABS: INR 1.54 (0.87-1.13)
[2016-12-18 09:19] LABS: Partial Thromboplastin Time 34.2 Sec. (24.2-36.6)
[2016-12-18 09:25] LABS: Alanine Aminotransferase 279 units/L (7-56); Albumin 3.2 g/dL (3.9-5); Anion Gap 16 mmol/L; Blood Urea Nitrogen 15 mg/dL (9-20); Calcium 8.4 mg/dL (8.4-10.2); Carbon Dioxide 32 mmol/L (22-30); Chloride 81.8 mmol/L (98-107); Glucose 124 mg/dL (75-100); Potassium 3.7 mmol/L (3.6-5.0); Sodium 126 mmol/L (137-145); Total Protein 6.4 g/dL (6.3-8.2)
[2016-12-18 09:40] LABS: Alkaline Phosphatase 3043 units/L (35-129)
[2016-12-18 09:57] VITALS: BP 134/89
[2016-12-18 11:11] LABS: Blastocytes % (Manual) 0 %
[2016-12-18 11:12] LABS: Anisocytosis 1+; Basophils % (Manual) 0 % (0.0-1.8); Burr Cells Few; Eosinophils % (Manual) 0 % (0.0-4.3); Hypochromasia 1+; Poikilocytosis 1+; Total Cells Counted Percent 0
[2016-12-18 11:13] LABS: Target Cells Rare; Tear Drop Cells Few
[2016-12-18 11:14] LABS: Acanthocytes Few; Platelet Estimate Consistent w Auto
[2016-12-18 11:15] LABS: Diff Status Complete
--- NOTE | 2016-12-18 11:39 | Discharge Summary ---
Providers - Providers Date of Admission: 12/15/16 15:58 Attending physician: CHRISTINE SARAVIA MD 12/16/16 11:21 Physical Therapy Evaluation and Treat [CONS] Routine Comment: Reason For Exam: debility Speech Therapy Evaluation and Treat [CONS] Routine Reason For Exam: dysphagia 12/16/16 11:25 Consult to Dietitian/Nutrition [CONS] Routine Physician Instructions: Reason For Exam: Reason for Consult: Malnutrition 12/16/16 18:13 Consult to Physician [CONS] Routine Consulting Provider: DONN CAPONE Reason For Exam: prostate ca, anemia Place consult to:: answering service Notified:: yes Phone number called:: [phone] If yes, spoke with:: ifi Comment:: isa 12/16/16 18:14 Consult to Physician [CONS] Routine Consulting Provider: SHIRA MUSTAFA Reason For Exam: prostate ca Place consult to:: answering service Notified:: yes Phone number called:: [phone] If yes, spoke with:: answering machine Comment:: isa Primary care physician: SUPPLY TECH Hospitalization Condition: Fair Hospital course: 66 YO Male with Widely metastatic prostate cancer, Severe Malnutrition, he had been receiving treatment at [place] his daughter said he was receiving certain infusions and injections and was being transitioned to tablets. His cancer is widely metastatic and patient was not improving. He presented with weakness and syncope and dysphagia. Anemia Likely multifactorial, most likely due to widely metastatic malignancy, malnutrition. Patient has been transfused, hemoglobin improved Dysphagia Patient went to have modified barium swallow, with normal findings. His diet was advanced, patient did well Widely metastatic prostate cancer Patient elected to go to inpatient hospice different he was placed Hypokalemia Repleted IV Autonomic Imbalance -likely due to anemia and dehydration -has received blood and now improved Hypoglycemia suspect adrenal crisis- he received hydrocortisone and dextrose while in hospital, and he's been discharged on the Decadron taper Lactic acidosis He did not appear to be due to sepsis, infection workup is negative which includes chest x-ray and UA. Hepatitis/elevated liver enzymes likely due to metastatic cancer Hep C was positive, however patient did not want any treatment and wanted to go to hospice Coagulopathy He received FFP and vitamin K and it resolved Severe malnutrition He received dietitian consult and was encouraged to increase by mouth intake of food. Hypothermia Was most likely due to anemia, resolved a transfusion a warming blanket. Discharge diagnoses Anemia of chronic disease Dysphagia Metastatic prostate cancer Failure to thrive Hypokalemia Autonomic imbalance Hypoglycemia Adrenal insufficiency Lactic acidosis Hepatitis due to hep C Coagulopathy due to vitamin K deficiency Severe malnutrition Disposition: [facility] ([facility]) Time spent for discharge: 33 minutes Core Measure Documentation - Palliative Care Palliative Care/ Comfort Measures: Not Applicable - Core Measures Any of the following diagnoses?: none Exam - Physical Exam Narrative exam: General: Appears chronically ill, cachectic HEENT: MMM, EOMI, weak voice cardiac: S1-S2 heard lungs: clear to auscultation, abdomen: soft, nontender, nondistended bowel sounds positive extremities: no edema clubbing or cyanosis Skin: no rash or lesion Neuro: no focal deficit Psych: appropriate behavior and mood, cognition intact - Constitutional Vitals: Temp Pulse Resp BP Pulse Ox 98.4 F 92 H 20 134/89 100 12/18/16 09:56 12/18/16 09:56 12/18/16 09:56 12/18/16 09:56 12/17/16 22:00 Plan Follow up with: PRIMARY CARE, [Primary Care Provider] - 3-5 Days Prescriptions: Dexamethasone [Decadron] 4 mg PO Q12H #6 tablet HYDROmorphone [Dilaudid] 1 mg PO Q6H PRN #7 tablet PRN Reason: Pain , Severe (7-10) oxyCODONE [Roxicodone TAB] 10 mg PO Q4H PRN #7 tablet PRN Reason: Pain, Moderate (4-6) Pantoprazole [Protonix] 40 mg PO QDAY #30 tablet
--- NOTE | 2016-12-18 11:49 | Consultation ---
Past History Past Medical History: cancer (prostate), other (malnurition) Past Surgical History: No surgical history, Other (reviewed) Social history: no significant social history, single, Lives alone. denies: smoking, alcohol abuse, prescription drug abuse, IV drug use Family history: cancer (his brother also have prostate cancer.), hypertension Medications and Allergies Allergies Allergy/AdvReac Type Severity Reaction Status Date / Time No Known Allergies Allergy Verified 12/15/16 11:39 Home Medications Medication Instructions Recorded Confirmed Last Taken Type Dexamethasone [Decadron] 4 mg PO Q12H #6 tablet 12/18/16 Unknown Rx HYDROmorphone [Dilaudid] 1 mg PO Q6H PRN #7 tablet 12/18/16 Unknown Rx Pantoprazole [Protonix] 40 mg PO QDAY #30 tablet 12/18/16 Unknown Rx oxyCODONE [Roxicodone TAB] 10 mg PO Q4H PRN #7 tablet 12/18/16 Unknown Rx Active Meds: Active Medications Albuterol (Proventil) 2.5 mg IH Q4HRT PRN PRN Reason: Shortness Of Breath Bisacodyl (Dulcolax) 10 mg GA QDAY PRN PRN Reason: Constipation unrelieved by MOM Dextrose (D50w (25gm)) 25 ml IV PRN PRN PRN Reason: Hypoglycemia Last Admin: 12/17/16 07:32 Dose: 25 ml Hydrocortisone Sodium Succinate (Solu-Cortef) 100 mg IV Q8HR MCKINLEY Last Admin: 12/18/16 06:25 Dose: Not Given Hydromorphone HCl (Dilaudid) 1 mg PO Q6H PRN PRN Reason: Pain , Severe (7-10) Last Admin: 12/18/16 09:15 Dose: 1 mg Dextrose (D10w) 1,000 mls @ 125 mls/hr IV DIRECT MCKINLEY Last Admin: 12/18/16 03:00 Dose: 125 mls/hr Magnesium Hydroxide (Milk Of Magnesia) 30 ml PO Q4H PRN PRN Reason: Constipation Oxycodone HCl (Roxicodone) 10 mg PO Q4H PRN PRN Reason: Pain, Moderate (4-6) Last Admin: 12/17/16 23:00 Dose: 10 mg Pantoprazole Sodium (Protonix) 40 mg PO BID MCKINLEY Exam - Constitutional Vitals: Temp Pulse Resp BP Pulse Ox 98.4 F 92 H 20 134/89 100 12/18/16 09:56 12/18/16 09:56 12/18/16 09:56 12/18/16 09:56 12/17/16 22:00 Results - Labs CBC & Chem 7: 12/18/16 08:33 12/18/16 08:33 Labs: Abnormal lab results 12/17/16 12/17/16 12/17/16 Range/Units 12:18 14:25 16:11 Hgb (11.8-15.2) gm/dl Hct (35.5-45.6) % MCV (84-94) fl MCH (28-32) pg RDW (13.2-15.2) % Plt Count (140-440) K/mm3 Seg Neuts % (Manual) (40.0-70.0) % Lymphocytes # (Manual) (1.2-5.4) K/mm3 PT 21.2 H (12.2-14.9) Sec. INR 1.73 H (0.87-1.13) Sodium (137-145) mmol/L Chloride (98-107) mmol/L Carbon Dioxide (22-30) mmol/L Creatinine (0.8-1.5) mg/dL Glucose (75-100) mg/dL POC Glucose 234 H 160 H (70-105) Phosphorus (2.5-4.5) mg/dL AST (5-40) units/L ALT (7-56) units/L Alkaline Phosphatase (35-129) units/L Albumin (3.9-5) g/dL 12/17/16 12/18/16 12/18/16 Range/Units 21:50 02:56 07:51 Hgb (11.8-15.2) gm/dl Hct (35.5-45.6) % MCV (84-94) fl MCH (28-32) pg RDW (13.2-15.2) % Plt Count (140-440) K/mm3 Seg Neuts % (Manual) (40.0-70.0) % Lymphocytes # (Manual) (1.2-5.4) K/mm3 PT (12.2-14.9) Sec. INR (0.87-1.13) Sodium (137-145) mmol/L Chloride (98-107) mmol/L Carbon Dioxide (22-30) mmol/L Creatinine (0.8-1.5) mg/dL Glucose (75-100) mg/dL POC Glucose 280 H 174 H 149 H (70-105) Phosphorus (2.5-4.5) mg/dL AST (5-40) units/L ALT (7-56) units/L Alkaline Phosphatase (35-129) units/L Albumin (3.9-5) g/dL 12/18/16 12/18/16 12/18/16 Range/Units 08:33 08:33 08:33 Hgb 9.5 L (11.8-15.2) gm/dl Hct 29.5 L (35.5-45.6) % MCV 76 L (84-94) fl MCH 25 L (28-32) pg RDW 16.9 H (13.2-15.2) % Plt Count 106 L (140-440) K/mm3 Seg Neuts % (Manual) 74.0 H (40.0-70.0) % Lymphocytes # (Manual) 0.9 L (1.2-5.4) K/mm3 PT 19.3 H (12.2-14.9) Sec. INR 1.54 H (0.87-1.13) Sodium 126 L (137-145) mmol/L Chloride 81.8 L (98-107) mmol/L Carbon Dioxide 32 H (22-30) mmol/L Creatinine 0.4 L (0.8-1.5) mg/dL Glucose 124 H (75-100) mg/dL POC Glucose (70-105) Phosphorus 2.30 L (2.5-4.5) mg/dL AST 365 H (5-40) units/L ALT 279 H (7-56) units/L Alkaline Phosphatase 3043 H (35-129) units/L Albumin 3.2 L (3.9-5) g/dL Assessment and Plan Time adjust METASTATIC PROSTATE CA - dx 9m - get records from his [facility] - ext disc - pt likely on [facility]
--- NOTE | 2016-12-18 12:01 | Progress Note ---
Assessment and Plan METASTATIC PROSTATE CA 12/17/16 - dx 9m - get records from his [facility] - ext disc - pt likely on [facility] - disc tx options 12/18/17 - Pt going to hospice - States does not want any more treatment, understands r vs b - disc can f/u with us anytime or his primary urologist in [place] Subjective Date of service: 12/18/16 Interval history: no new pain Objective - Constitutional Vitals: Vital Signs - 12hr 12/18/16 09:56 Temperature 98.4 F Pulse Rate 92 H Respiratory 20 Rate Blood Pressure 134/89 - Respiratory Respiratory effort: normal - Labs CBC & Chem 7: 12/18/16 08:33 12/18/16 08:33 Labs: Abnormal lab results 12/17/16 12/17/16 12/17/16 Range/Units 12:18 14:25 16:11 Hgb (11.8-15.2) gm/dl Hct (35.5-45.6) % MCV (84-94) fl MCH (28-32) pg RDW (13.2-15.2) % Plt Count (140-440) K/mm3 Seg Neuts % (Manual) (40.0-70.0) % Lymphocytes # (Manual) (1.2-5.4) K/mm3 PT 21.2 H (12.2-14.9) Sec. INR 1.73 H (0.87-1.13) Sodium (137-145) mmol/L Chloride (98-107) mmol/L Carbon Dioxide (22-30) mmol/L Creatinine (0.8-1.5) mg/dL Glucose (75-100) mg/dL POC Glucose 234 H 160 H (70-105) Phosphorus (2.5-4.5) mg/dL AST (5-40) units/L ALT (7-56) units/L Alkaline Phosphatase (35-129) units/L Albumin (3.9-5) g/dL 12/17/16 12/18/16 12/18/16 Range/Units 21:50 02:56 07:51 Hgb (11.8-15.2) gm/dl Hct (35.5-45.6) % MCV (84-94) fl MCH (28-32) pg RDW (13.2-15.2) % Plt Count (140-440) K/mm3 Seg Neuts % (Manual) (40.0-70.0) % Lymphocytes # (Manual) (1.2-5.4) K/mm3 PT (12.2-14.9) Sec. INR (0.87-1.13) Sodium (137-145) mmol/L Chloride (98-107) mmol/L Carbon Dioxide (22-30) mmol/L Creatinine (0.8-1.5) mg/dL Glucose (75-100) mg/dL POC Glucose 280 H 174 H 149 H (70-105) Phosphorus (2.5-4.5) mg/dL AST (5-40) units/L ALT (7-56) units/L Alkaline Phosphatase (35-129) units/L Albumin (3.9-5) g/dL 12/18/16 12/18/16 12/18/16 Range/Units 08:33 08:33 08:33 Hgb 9.5 L (11.8-15.2) gm/dl Hct 29.5 L (35.5-45.6) % MCV 76 L (84-94) fl MCH 25 L (28-32) pg RDW 16.9 H (13.2-15.2) % Plt Count 106 L (140-440) K/mm3 Seg Neuts % (Manual) 74.0 H (40.0-70.0) % Lymphocytes # (Manual) 0.9 L (1.2-5.4) K/mm3 PT 19.3 H (12.2-14.9) Sec. INR 1.54 H (0.87-1.13) Sodium 126 L (137-145) mmol/L Chloride 81.8 L (98-107) mmol/L Carbon Dioxide 32 H (22-30) mmol/L Creatinine 0.4 L (0.8-1.5) mg/dL Glucose 124 H (75-100) mg/dL POC Glucose (70-105) Phosphorus 2.30 L (2.5-4.5) mg/dL AST 365 H (5-40) units/L ALT 279 H (7-56) units/L Alkaline Phosphatase 3043 H (35-129) units/L Albumin 3.2 L (3.9-5) g/dL 12/18/16 Range/Units 11:36 Hgb (11.8-15.2) gm/dl Hct (35.5-45.6) % MCV (84-94) fl MCH (28-32) pg RDW (13.2-15.2) % Plt Count (140-440) K/mm3 Seg Neuts % (Manual) (40.0-70.0) % Lymphocytes # (Manual) (1.2-5.4) K/mm3 PT (12.2-14.9) Sec. INR (0.87-1.13) Sodium (137-145) mmol/L Chloride (98-107) mmol/L Carbon Dioxide (22-30) mmol/L Creatinine (0.8-1.5) mg/dL Glucose (75-100) mg/dL POC Glucose 184 H (70-105) Phosphorus (2.5-4.5) mg/dL AST (5-40) units/L ALT (7-56) units/L Alkaline Phosphatase (35-129) units/L Albumin (3.9-5) g/dL
[2016-12-18] MEDS ORDERED: PROTONIX PO SCH (22:00)
== END 2016-12-18 15:05 | disposition hospice, inpatient (51) | DRG 722 ==
LOC: ED 10:44 → CC2 15:58
PROVIDERS: ADMIT Internal Medicine; ATTEND Internal Medicine
PROC: 30233N1 Transfusion of Nonautologous Red Blood Cells into Peripheral Vein, Percutaneous Approach (ICD-10-PCS; principal; 2016-12-15)
PROC: 30233K1 Transfusion of Nonautologous Frozen Plasma into Peripheral Vein, Percutaneous Approach (ICD-10-PCS; 2016-12-15)
PROC: 30233L1 Transfusion of Nonautologous Fresh Plasma into Peripheral Vein, Percutaneous Approach (ICD-10-PCS; 2016-12-15)
DX: C61 Malignant neoplasm of prostate (principal); E43 Unspecified severe protein-calorie malnutrition; K92.2 Gastrointestinal hemorrhage, unspecified; E87.2 Acidosis; D68.9 Coagulation defect, unspecified; E27.40 Unspecified adrenocortical insufficiency; Z68.1 Body mass index [BMI] 19.9 or less, adult; E87.6 Hypokalemia; E11.65 Type 2 diabetes mellitus with hyperglycemia; R13.10 Dysphagia, unspecified; D50.0 Iron deficiency anemia secondary to blood loss (chronic); Z60.2 Problems related to living alone; D63.0 Anemia in neoplastic disease; B19.20 Unspecified viral hepatitis C without hepatic coma; R62.7 Adult failure to thrive; E86.0 Dehydration; E11.649 Type 2 diabetes mellitus with hypoglycemia without coma; Z82.49 Family history of ischemic heart disease and other diseases of the circulatory system; Z80.42 Family history of malignant neoplasm of prostate
CPT/HCPCS: 36415; 70450; 71010; 71260; 74177; 74230; 80048; 80053; 80074; 81001; 82140; 82271; 82962; 83036; 83735; 84100; 84443; 85007; 85025; 85027; 85610; 85730; 86850; 86900; 86901; 86920; 87040; 87086; 87517; 87902; 93005; 93010; 96365; 96375; C9113; G8996-GN; G8997-GN; J0696; J1720; J3430; J3480; J7030; J7040; P9016; P9017; Q9967